=== PATIENT | female | born 1945 | race Caucasian/White ===

== ENCOUNTER 2016-10-02 20:49 | Emergency (ER) | payer MEDICARE, OTHER ==
[~2016-10-02] VITALS: Ht 167.6 cm; Wt 90.7 kg
--- NOTE | 2016-10-02 20:56 | NUR ---
PT AMBULATORY TO ER BED 09. C/O L FLANK PAIN SINCE LAST NIGHT. ALSO C/O DYSURIA. PER FAMILY PT HAS HX OF KIDNEY STONE 6 YEARS AGO AND IS HAVING THE SAME SYMPTOMS. GOWNED AND PLACED ON MONITOR. HYPERTENSIVE OTHERWISE STABLE VITALS. AWAITING MD FRENCH.
--- NOTE | 2016-10-02 21:25 | NUR ---
ANGLE MALIN AT BEDSIDE FOR EVAL.
[2016-10-02] MEDS ORDERED: IV NS 0.9% 1,000 ML BAG IV ONE (21:30)
--- NOTE | 2016-10-02 21:30 | NUR ---
IV LINE STARTED BLOO DRAWN AND SENT TO LAB.
[2016-10-02 21:32] LABS: APPEARANCE,URINE Clear (CLEAR); BILIRUBIN,URINE Negative (NEGATIVE); BLOOD, URINE Small Ery/uL (NEGATIVE); COLOR,URINE Yellow (YELLOW); KETONES,URINE Negative (NEGATIVE); LEUKOCYTE ESTERASE ,URINE Negative (NEGATIVE); NITRITE, URINE Negative (NEGATIVE); PH,URINE 5.5 (5.0-8.0); PROTEIN,URINE Negative (NEGATIVE); UGLUCOSE Negative (NEGATIVE); UROBILINOGEN,URINE 0.2 EU/dL (0.2)
[2016-10-02 21:37] LABS: BASOPHILS # (AUTO) 0.1 /CMM (0.0-0.2); BASOPHILS % (AUTO) 0.6 % (0.0-2.0); EOSINOPHILS # (AUTO) 0.1 /CMM (0.0-0.7); EOSINOPHILS % (AUTO) 1.5 % (0.0-6.0); HEMATOCRIT 46 % (33-45); HEMOGLOBIN 15.3 g/dL (11.5-14.8); LYMPHOCYTES # (AUTO) 1.9 /CMM (0.8-4.8); LYMPHOCYTES % (AUTO) 19.8 % (20.0-44.0); MEAN CORPUSCULAR HEMOGLOBIN 29 PG (26.0-33.0); MEAN CORPUSCULAR HGB CONC 33 g/dl (31.0-36.0); MEAN CORPUSCULAR VOLUME 87 fL (82-100); MONOCYTES # (AUTO) 0.6 /CMM (0.1-1.30); MONOCYTES % (AUTO) 6.6 % (2.0-12.0); NEUTROPHILS # (AUTO) 6.9 /CMM (1.8-8.9); NEUTROPHILS % (AUTO) 71.5 % (43.0-81.0); PLATELET COUNT (AUTO) 204 /CMM (150-450); RDW COEFFICIENT OF VARIATION 13.6 (11.5-15.0); RED BLOOD CELL COUNT(AUTO) 5.34 MIL/uL (4.0-5.2); WHITE BLOOD COUNT (AUTO) 9.6 K/uL (4.3-11.0)
[2016-10-02] MEDS ORDERED: KETOROLAC TROMETHAMINE 15 MG/ML VIAL ONE (21:39)
[2016-10-02] MEDS ORDERED: MORPHINE SULFATE INJ 2 MG/ML DISP.SYRIN ONE (21:39)
[2016-10-02 21:44] LABS: CALCIUM, SERUM 9.3 mg/dL (8.5-10.1); CREATININE 0.8 mg/dL (0.6-1.3); POTASSIUM 3.7 mmol/L (3.5-5.1)
[2016-10-02 21:45] LABS: BACTERIA,URINE Few /HPF (None Seen); MUCUS,URINE Many /LPF (None Seen); SQUAMOUS EPITHELIAL CELL,UR Few /HPF (None Seen); URINE AMORPHOUS URATE Few /HPF (None Seen)
[2016-10-02 21:50] LABS: BILIRUBIN,DIRECT 0.1 mg/dL (0.0-0.2); BILIRUBIN,TOTAL 0.5 mg/dL (0.2-1.0); TOTAL PROTEIN, SERUM 7.5 g/dL (6.4-8.2)
[2016-10-02] MEDS ORDERED: ONDANSETRON HCL/PF 4 MG/2 ML VIAL ONE (21:52)
[2016-10-02] MEDS ORDERED: KETOROLAC TROMETHAMINE INJ 30 MG/ML VIAL IV ONE (22:00)
[2016-10-02] MEDS ORDERED: MORPHINE SULFATE INJ 2 MG/ML DISP.SYRIN IV ONE (22:00)
[2016-10-02] MEDS ORDERED: ONDANSETRON HCL/PF 4 MG/2 ML VIAL IV ONE (22:00)
[2016-10-02 22:35] VITALS: BP 168/94
--- NOTE | 2016-10-02 22:35 | NUR ---
Patient discharged to home in stable condition. Written and verbal after care instructions given. Patient verbalizes understanding of instruction.IV removed. Catheter intact and site benign. Pressure and 4x4 applied to site. No bleeding noted.
== END 2016-10-02 22:36 | disposition home or self-care (01) ==
LOC: ER 20:50
DX: M54.42 Lumbago with sciatica, left side (principal); E86.0 Dehydration; I49.9 Cardiac arrhythmia, unspecified; M19.90 Unspecified osteoarthritis, unspecified site; I10 Essential (primary) hypertension; Z87.442 Personal history of urinary calculi
CPT/HCPCS: 36415; 80048; 80076; 81001; 85025; 96374; 96375; 99284; A4606; J1885; J2270; J2405; J7030; 81000-TC; Z7610

== ENCOUNTER 2019-02-05 15:54 | Inpatient (IN) | payer MEDICARE, OTHER ==
[~2019-02-05] VITALS: Ht 170.2 cm; Wt 87.1 kg
--- NOTE | 2019-02-05 15:54 | NUR ---
WORSENINIG SHORTNESS OF BREATH,UNABLE TO LAY FLAT IN BED, CHAD.LEG SWELLING, PT AWAKE, ALERT, NAD NOTED, PT ON MONITOR, MD AT BEDSIDE FOR EVAL
[2019-02-05] MEDS ORDERED: FUROSEMIDE 40 MG/4 ML VIAL IV ONE (16:30)
[2019-02-05] MEDS ORDERED: FUROSEMIDE 40 MG/4 ML VIAL ONE (16:34)
[2019-02-05 16:47] LABS: BASOPHILS % (AUTO) 0.4 % (0.0-2.0); EOSINOPHILS % (AUTO) 0.6 % (0.0-6.0); HEMATOCRIT 46 % (33-45); LYMPHOCYTES # (AUTO) 1.8 /CMM (0.8-4.8); LYMPHOCYTES % (AUTO) 15.4 % (20.0-44.0); MEAN CORPUSCULAR HGB CONC 33 g/dl (31.0-36.0); MEAN CORPUSCULAR VOLUME 90 fL (82-100); MONOCYTES # (AUTO) 0.9 /CMM (0.1-1.30); MONOCYTES % (AUTO) 7.5 % (2.0-12.0); NEUTROPHILS # (AUTO) 8.6 /CMM (1.8-8.9); NEUTROPHILS % (AUTO) 76.1 % (43.0-81.0); PLATELET COUNT (AUTO) 238 /CMM (150-450); RED BLOOD CELL COUNT(AUTO) 5.09 MIL/uL (4.0-5.2); WHITE BLOOD COUNT (AUTO) 11.4 K/uL (4.3-11.0)
[2019-02-05] MEDS ORDERED: METOPROLOL TARTRATE INJ 5 MG/5 ML AMPUL IV ONE ×3 (17:00→20:00)
[2019-02-05] MEDS ORDERED: METOPROLOL TARTRATE INJ 5 MG/5 ML AMPUL ONE ×3 (17:05→19:46)
[2019-02-05 17:12] LABS: CALCIUM, SERUM 8.8 mg/dL (8.5-10.1); CREATININE 0.9 mg/dL (0.6-1.3)
[2019-02-05] MEDS ORDERED: MELO-107 PO (17:46)
[2019-02-05] MEDS ORDERED: CARV25TA2 PO (17:46)
[2019-02-05] MEDS ORDERED: BUDE10.22 PO (17:46)
[2019-02-05] MEDS ORDERED: CLON0.5T4 PO (17:46)
[2019-02-05] MEDS ORDERED: CLON0.2T PO (17:46)
[2019-02-05] MEDS ORDERED: MECL12.582 PO (17:46)
[2019-02-05] MEDS ORDERED: LOSA50TA39 PO (17:46)
--- NOTE | 2019-02-05 19:03 | NUR ---
CALLED [facility] ITS DR. SHUKLA IS ON.
[2019-02-05] MEDS ORDERED: METOPROLOL TARTRATE INJ 5 MG/5 ML AMPUL IVP ONE (20:00)
--- NOTE | 2019-02-05 20:40 | NUR ---
REFRACTORY PRODUCTS SUPERVISOR NOTES: PATIENT ARRIVED TO UNIT VIA GURNEY. PATIENT IS A 73-YEAR-OLD FEMALE WITH DX: ACUTE CHF AND AFIB WITH RVR. NO RESPIRATORY DISTRESS. ON O2 AT 2LPM VIA NC, TOLERATING WELL. NO CHEST PAIN. SON AT BEDSIDE. PLACED ON PHARMACY SALES REPRESENTATIVE, SHOWING UNCONTROLLED AFIB, HR 140s. V/S TAKEN. BODY ASSESSMENT DONE. SAFETY PRECAUTIONS IMPLEMENTED. BED LOCKED, ALARM ON, AND IN LOWEST POSITION. SIDE RAILS X 2 UP. CALL LIGHT PLACED WITHIN REACH. WILL CONT. TO MONITOR. Addendum: 02/06/19 at 0049 by ERIN BROCK RN PHOTO OF SKIN ISSUE TAKEN AND PLACED IN CHART.
--- NOTE | 2019-02-05 20:48 | NUR ---
REPORT GIVEN TO BRUCE STEWART FOR NGOC PT TRANSPORTED TO [facility]
[2019-02-05] MEDS ORDERED: ALBUTEROL FS 2.5 MG/0.5 ML VIAL.NEB NEB PRN (21:00)
[2019-02-05] MEDS ORDERED: IPRATROPIUM NEB FS 0.5 MG/2.5 ML AMPUL.NEB NEB PRN (21:00)
[2019-02-05 21:21] VITALS: BP 115/82
[2019-02-05] MEDS ORDERED: DILTIAZEM HCL 25 MG IV ONE ×2 (21:28→21:30)
[2019-02-05] MEDS: DILTIAZEM HCL IV 125 MG in IV NS 0.9% 100 ML IV PRN (21:53)
--- NOTE | 2019-02-05 21:53 | NUR ---
RN NOTE: UNABLE TO SCAN CARDIZEM. MANUALLY SCANNED MEDICATION.
--- NOTE | 2019-02-05 23:00 | NUR ---
RN NOTE: PATIENT WISHES TO BE FULL CODE. DR. SHUKLA MADE AWARE. ECHO DONE. EF 25-30%. DR. SHUKLA MADE AWARE WITH NO NEW ORDERS. PATIENT IN NO ACUTE DISTRESS AT THIS TIME. NO CHEST PAIN. WILL CONT. TO MONITOR.
[2019-02-06] VITALS: BP 128/71
[2019-02-06] MEDS: FUROSEMIDE 40 MG/4 ML VIAL IV SCH ×4 (00:22→17:01)
[2019-02-06 04:00] VITALS: BP 121/80
--- NOTE | 2019-02-06 04:57 | NUR ---
RN NOTE: PATIENT'S HR 100-110. PATIENT IN NO ACUTE DISTRESS. NO CHEST PAIN AT THIS TIME. WILL CONT. TO MONITOR.
--- NOTE | 2019-02-06 05:25 | NUR ---
RN NOTE: PATIENT C/O BLE /10 PAIN AND SEVERE DISCOMFORT FROM MONTEJO CATHETER. SPOKE WITH DR. SHUKLA WITH NEW ORDER FOR NORCO 5/325 MG 1 TAB PO Q6H PRN. MONTEJO CATHETER IS INTACT, PATENT, AND DRAINING CLEAR YELLOW URINE, OUTPUT 2,800 MLS. HOWEVER, PATIENT STILL WANTS THE MONTEJO CATHETER REMOVED. PATIENT STATES SHE WILL PULL IT OUT HERSELF IF IT'S NOT REMOVED. DR. SHUKLA MADE AWARE. REMOVED MONTEJO PER PATIENT REQUEST, TOLERATED PROCEDURE WELL, WILL ENDORSE TO AM SHIFT NURSE TO TRY AND REINSERT MONTEJO. Addendum: 02/06/19 at 0715 by ERIN BROCK RN RISKS AND BENEFITS EXPLAINED. PATIENT STILL REFUSING MONTEJO CATHETER.
[2019-02-06] MEDS ORDERED: HYDROCODONE/APAP 5/325MG 1 EACH TABLET PO PRN (06:00)
[2019-02-06 07:07] LABS: BASOPHILS % (AUTO) 0.3 % (0.0-2.0); EOSINOPHILS % (AUTO) 0.8 % (0.0-6.0); HEMATOCRIT 45 % (33-45); HEMOGLOBIN 14.9 g/dL (11.5-14.8); LYMPHOCYTES # (AUTO) 1.2 /CMM (0.8-4.8); LYMPHOCYTES % (AUTO) 12.5 % (20.0-44.0); MEAN CORPUSCULAR HGB CONC 33 g/dl (31.0-36.0); MEAN CORPUSCULAR VOLUME 89 fL (82-100); MONOCYTES # (AUTO) 0.8 /CMM (0.1-1.30); MONOCYTES % (AUTO) 8.7 % (2.0-12.0); NEUTROPHILS # (AUTO) 7.6 /CMM (1.8-8.9); NEUTROPHILS % (AUTO) 77.7 % (43.0-81.0); PLATELET COUNT (AUTO) 214 /CMM (150-450); RED BLOOD CELL COUNT(AUTO) 5.01 MIL/uL (4.0-5.2); WHITE BLOOD COUNT (AUTO) 9.8 K/uL (4.3-11.0)
--- NOTE | 2019-02-06 07:10 | NUR ---
RN CLOSING NOTES: PATIENT AWAKE AND VERBALLY RESPONSIVE. AAOX4. SON AT BEDSIDE. NO RESPIRATORY DISTRESS. NO CHEST PAIN. STILL UNCONTROLLED AFIB. REMAINS ON CARDIZEM DRIP. HR 110-120s. RISKS AND BENEFITS EXPLAINED OF MONTEJO CATHETER, PATIENT STILL REFUSED. SAFETY PRECAUTIONS IMPLEMENTED. BED LOCKED, ALARM ON, AND IN LOWEST POSITION. ENDORSED TO AM SHIFT NURSE FOR CONTINUITY OF CARE.
[2019-02-06 07:21] LABS: ALBUMIN 2.9 g/dL (3.4-5.0); CALCIUM, SERUM 8.6 mg/dL (8.5-10.1); CREATININE 0.9 mg/dL (0.6-1.3); POTASSIUM 3.2 mmol/L (3.5-5.1); TOTAL PROTEIN, SERUM 5.7 g/dL (6.4-8.2)
[2019-02-06 08:00] VITALS: BP 125/69
--- NOTE | 2019-02-06 08:17 | NUR ---
received pt from crm dynamics developer, a/o x4, A fib controlled, on Cardizem gtt at 5mg/hr, on 2L 02 sat well, tolerates diet, diaper on, refused F/C, v/s stable, no pain, son at the bedside, pt turns and repositions by herself.
[2019-02-06] MEDS: clonazePAM 0.5 MG TABLET PO SCH (08:50)
[2019-02-06] MEDS ORDERED: ENOXAPARIN SODIUM 30 MG/0.3 ML DISP.SYRIN SQ SCH (09:00)
[2019-02-06] MEDS: POTASSIUM CHLORIDE 20 MEQ TAB.PRT.SR PO SCH ×3 (09:42→12:02)
[2019-02-06] MEDS: CARVEDILOL 3.125 MG TABLET PO SCH ×2 (09:42→22:12)
[2019-02-06 10:20] LABS: THYROID STIMULATING HORMONE 2.047 uIU/mL (0.358-3.74)
[2019-02-06 10:28] LABS: MAGNESIUM 1.9 mg/dL (1.8-2.4); PHOSPHORUS 3.9 mg/dL (2.5-4.9)
[2019-02-06] MEDS: DIGOXIN INJ 0.5 MG/2 ML AMPUL IV SCH ×2 (11:06→17:01)
[2019-02-06 12:00] VITALS: BP 95/48
[2019-02-06 16:00] VITALS: BP 130/80
--- NOTE | 2019-02-06 16:27 | NUR ---
pt is resting in the bed, a/o x4, A fib controlled/uncontrolled, on 2L 02, receiving Cardizem drip at 5mg/hr, tolerated diet, v/s stable, no pain, pt cleaned and changed.
[2019-02-06] MEDS: APIXABAN 5 MG TABLET PO SCH (17:02)
--- NOTE | 2019-02-06 17:30 | NUR ---
pt's IV is dislodged, one attempt was made to insert - unsuccessful, patient did not let me try one more time- very sensitive to pain, midline ordered.
[2019-02-06 20:00] VITALS: BP 114/76
--- NOTE | 2019-02-06 20:00 | NUR ---
RN NOTES RECEIVED PATIENT AWAKE AND VERBALLY RESPONSIVE IN BED. A/A/OX4. SON AT BEDSIDE. NO RESPIRATORY DISTRESS. NO CHEST PAIN. ON O2 VIA NC. STILL AFIB ON GENERAL MILLING SUPERINTENDENT. REMAINS ON CARDIZEM DRIP.RISKS AND BENEFITS EXPLAINED OF MONTEJO CATHETER, PATIENT STILL REFUSED USING BSC. SAFETY PRECAUTIONS IMPLEMENTED. BED LOCKED, ALARM ON, AND IN LOWEST POSITION. WILL CONTINUE TO MONITOR.
[2019-02-07] VITALS: BP 119/77
[2019-02-07] MEDS: DIGOXIN INJ 0.5 MG/2 ML AMPUL IV SCH (00:52)
[2019-02-07] MEDS: FUROSEMIDE 40 MG/4 ML VIAL IV SCH ×4 (00:52→17:29)
[2019-02-07] MEDS: DILTIAZEM HCL IV 125 MG in IV NS 0.9% 100 ML IV PRN (02:43)
[2019-02-07 04:00] VITALS: BP 118/61
[2019-02-07 06:53] LABS: BASOPHILS % (AUTO) 0.6 % (0.0-2.0); EOSINOPHILS % (AUTO) 1.7 % (0.0-6.0); HEMATOCRIT 45 % (33-45); LYMPHOCYTES # (AUTO) 1.3 /CMM (0.8-4.8); LYMPHOCYTES % (AUTO) 15.3 % (20.0-44.0); MEAN CORPUSCULAR HGB CONC 33 g/dl (31.0-36.0); MEAN CORPUSCULAR VOLUME 89 fL (82-100); MONOCYTES # (AUTO) 0.8 /CMM (0.1-1.30); MONOCYTES % (AUTO) 9.3 % (2.0-12.0); NEUTROPHILS # (AUTO) 6.2 /CMM (1.8-8.9); NEUTROPHILS % (AUTO) 73.1 % (43.0-81.0); PLATELET COUNT (AUTO) 194 /CMM (150-450); RED BLOOD CELL COUNT(AUTO) 5.02 MIL/uL (4.0-5.2); WHITE BLOOD COUNT (AUTO) 8.5 K/uL (4.3-11.0)
--- NOTE | 2019-02-07 07:00 | NUR ---
RN NOTES PATIENT IS RESTING IN BED. A/A/OX4. NO RESPIRATORY DISTRESS. NO CHEST PAIN. ON O2 VIA NC. STILL AFIB ON HUMAN RESOURCES PARTNER. REMAINS ON CARDIZEM DRIP.SAFETY PRECAUTIONS ARE IN PLACE,. BED LOCKED, ALARMED AND IN LOWEST POSITION. WILL INDORSE TO AM RN FOR HUNTING AND FISHING GUIDE..
--- NOTE | 2019-02-07 07:30 | NUR ---
SAVANNA RN INITIAL NOTE RECEIVED PATIENT AWAKE AND ALERT, DENIES PAIN OR DISCOMFORT AT THIS TIME. DENIES CHEST PAIN. ON TELE MONITOR AFIB UNCONTROLLED 103. SKIN WARM AND DRY TO TOUCH. NO RESPIRATORY DISTRESS NOTED ON 2LPMO2 VIA NC. WITH PEG MIDLINE PATENT AND INTACT, ON CARDIZEM DRIP AT 5ML/HR. HOB ELEVATED. SIDE RAILS UP AND LOCKED. BED KEPT AT LOWEST POSITION. CALL LIGHT KEPT WITHIN EASY REACH. WILL CONTINUE TO MONITOR.
[2019-02-07 08:00] VITALS: BP 126/85
[2019-02-07 08:08] LABS: ALANINE AMINOTRANSFERASE 128 U/L (12-78); ALBUMIN 2.8 g/dL (3.4-5.0); ALKALINE PHOSPHATASE 117 U/L (46-116); ASPARTATE AMINOTRANSFERASE 33 U/L (15-37); CALCIUM, SERUM 8.6 mg/dL (8.5-10.1); CARBON DIOXIDE 30 mmol/L (21-32); CHLORIDE 104 mmol/L (98-107); GLUCOSE 97 mg/dL (74-106); MAGNESIUM 1.9 mg/dL (1.8-2.4); PHOSPHORUS 4.2 mg/dL (2.5-4.9); POTASSIUM 3.4 mmol/L (3.5-5.1); SODIUM SERUM 144 mmol/L (136-145); TOTAL PROTEIN, SERUM 5.7 g/dL (6.4-8.2); UREA NITROGEN, BLOOD 20 mg/dL (7-18)
[2019-02-07] MEDS: APIXABAN 5 MG TABLET PO SCH ×2 (08:30→17:30)
[2019-02-07] MEDS: clonazePAM 0.5 MG TABLET PO SCH (08:34)
[2019-02-07] MEDS: CARVEDILOL 3.125 MG TABLET PO SCH (08:35)
[2019-02-07] MEDS: POTASSIUM CHLORIDE 20 MEQ TAB.PRT.SR PO SCH ×3 (10:23→12:15)
--- NOTE | 2019-02-07 10:47 | NUR ---
horticultural farmworker note continuity of care endorsed to PAT Calvert
[2019-02-07 16:00] VITALS: BP 117/76
--- NOTE | 2019-02-07 19:40 | NUR ---
MS RN OPENING NOTES, RECEIVED PATIENT AWAKE AND ALERT SITTING IN THE BED, DENIES PAIN OR DISCOMFORT AT THIS TIME. DENIES CHEST PAIN. SKIN WARM AND DRY TO TOUCH. NO RESPIRATORY DISTRESS NOTED ON 2L O2 VIA NC. WITH PEG MIDLINE PATENT AND INTACT, NO S/S OF INFILTRATION NOTED. PATIENT IS AMBULATORY. HOB ELEVATED. SIDE RAILS UP X2. BED LOCKED/LOW POSITION. CALL LIGHT WITHIN REACH. WILL CONTINUE TO MONITOR.
[2019-02-07] MEDS: CARVEDILOL 6.25 MG TABLET PO SCH (21:16)
[2019-02-08] MEDS: FUROSEMIDE 40 MG/4 ML VIAL IV SCH ×2 (00:48→06:01)
[2019-02-08 04:00] VITALS: BP 97/64
--- NOTE | 2019-02-08 06:41 | NUR ---
MS RN CLOSING NOTES, PATIENT AWAKE AND ALERT IN THE BED, DENIES PAIN OR DISCOMFORT AT THIS TIME. DENIES CHEST PAIN. SKIN WARM AND DRY TO TOUCH. NO RESPIRATORY DISTRESS NOTED ON 2L O2 VIA NC, TOLERATING WELL. PATIENT HAS PEG MIDLINE, PATENT AND INTACT, NO S/S OF INFILTRATION NOTED. PATIENT IS AMBULATORY TO BATHROOM. HOB ELEVATED. SIDE RAILS UP X2. BED LOCKED/LOW POSITION. CALL LIGHT WITHIN REACH. WILL ENDORSE THE CONTINUES CARE TO AM RN.
--- NOTE | 2019-02-08 07:13 | NUR ---
MS RN OPENING NOTE RECEIVED REPORT FROM [facility] SHIFT NURSE. PT AWAKE IN BED, ALERT AND ORIENTED X 4, ON 02 VIA NC 2L/MIN, SATURATING WELL, RESPIRATIONS EVEN AND UNLABORED, NO SIGNS OF RESPIRATORY DISTRESS NOTED. MIDLINE IN RIGHT UPPER ARM INTACT, PATENT. BED IN LOW POSITION, LOCKED, CALL LIGHT WITHIN REACH.
[2019-02-08 07:23] LABS: BASOPHILS % (AUTO) 0.4 % (0.0-2.0); EOSINOPHILS % (AUTO) 1.9 % (0.0-6.0); HEMATOCRIT 49 % (33-45); HEMOGLOBIN 16.2 g/dL (11.5-14.8); LYMPHOCYTES # (AUTO) 1.8 /CMM (0.8-4.8); LYMPHOCYTES % (AUTO) 19.2 % (20.0-44.0); MEAN CORPUSCULAR HGB CONC 33 g/dl (31.0-36.0); MEAN CORPUSCULAR VOLUME 90 fL (82-100); MONOCYTES # (AUTO) 0.9 /CMM (0.1-1.30); MONOCYTES % (AUTO) 9.9 % (2.0-12.0); NEUTROPHILS # (AUTO) 6.4 /CMM (1.8-8.9); NEUTROPHILS % (AUTO) 68.6 % (43.0-81.0); PLATELET COUNT (AUTO) 220 /CMM (150-450); RED BLOOD CELL COUNT(AUTO) 5.44 MIL/uL (4.0-5.2); WHITE BLOOD COUNT (AUTO) 9.3 K/uL (4.3-11.0)
[2019-02-08 07:31] LABS: ALANINE AMINOTRANSFERASE 103 U/L (12-78); ALBUMIN 2.7 g/dL (3.4-5.0); ALKALINE PHOSPHATASE 108 U/L (46-116); ASPARTATE AMINOTRANSFERASE 32 U/L (15-37); BILIRUBIN,TOTAL 0.8 mg/dL (0.2-1.0); CALCIUM, SERUM 8.6 mg/dL (8.5-10.1); CARBON DIOXIDE 34 mmol/L (21-32); CHLORIDE 101 mmol/L (98-107); CREATININE 1.1 mg/dL (0.6-1.3); GLUCOSE 98 mg/dL (74-106); PHOSPHORUS 3.7 mg/dL (2.5-4.9); POTASSIUM 3.6 mmol/L (3.5-5.1); SODIUM SERUM 142 mmol/L (136-145); TOTAL PROTEIN, SERUM 5.8 g/dL (6.4-8.2); UREA NITROGEN, BLOOD 20 mg/dL (7-18)
[2019-02-08 08:00] VITALS: BP 134/87
[2019-02-08] MEDS: clonazePAM 0.5 MG TABLET PO SCH (08:23)
[2019-02-08] MEDS: CARVEDILOL 6.25 MG TABLET PO SCH ×2 (08:24→21:00)
[2019-02-08] MEDS: APIXABAN 5 MG TABLET PO SCH ×2 (08:25→17:17)
[2019-02-08 08:42] LABS: ABG BASE EXCESS 8.1 mmol/L; ABG OXYGEN SATURATION 94.1 % (92.0-98.5); ABG PCO2 38.7 mmHg (35.0-45.0); ABG PH 7.527 (7.350-7.450); AaDO2 35.4 mmHg; COHb 0.8 % (0.5-1.5); MetHb 0.4 % (0.0-1.5); SITE, ABG Right Radial; VENT MODE, BG ROOM AIR
[2019-02-08] MEDS ORDERED: IV NS 0.9% 250 ML IV ONE (10:52)
[2019-02-08] MEDS ORDERED: IOHEXOL-350 100 ML VIAL IV ONE (10:52)
[2019-02-08] MEDS ORDERED: IV NS 0.9% 500 ML IV PRN (11:00)
[2019-02-08] MEDS ORDERED: NITROGLYCERIN 4.9 GM SPRAY SL PRN (11:00)
[2019-02-08] MEDS ORDERED: NITROGLYCERIN 0.4 MG/TAB BOTTLE ONE (11:05)
[2019-02-08] MEDS ORDERED: METOPROLOL TARTRATE INJ 5 MG/5 ML AMPUL ONE ×2 (11:06→11:47)
[2019-02-08] MEDS: METOPROLOL TARTRATE INJ 5 MG/5 ML AMPUL IVP PRN ×6 (11:16→11:53)
--- NOTE | 2019-02-08 11:31 | NUR ---
cta heart ongoing HR baseline uncontrolled afib at [address] kerry aware; with order to continue with test
--- NOTE | 2019-02-08 11:58 | NUR ---
total metoprolol given at 35 mg IVP. heart rate persistent uncontrolled afib at 120's 130's . Dr Vanegas aware; Dr Leung awware, Dr Tinajero aware Iinformed by [employer] Jose Harry) with order to suspend procedure due to uncontrolled afib, report given to PAT Perdomo; transported back to room 107
--- NOTE | 2019-02-08 12:01 | NUR ---
RECEIVED CALL FROM RADIOLOGY SPOKE WITH AUDELIA. TOTAL OF 35MG OF METOPROLOL WAS GIVEN, PT REMAINED WITH CONTROLLED AFIB BEFORE AND AFTER THE PROCEDURE. DR. VEDA MONTOYA.
--- NOTE | 2019-02-08 12:02 | NUR ---
PT RETURNED TO UNIT IN STABLE CONDITION
[2019-02-08 16:00] VITALS: BP 117/83
--- NOTE | 2019-02-08 18:43 | NUR ---
MS RN CLOSING NOTE PT AWAKE IN BED, ALERT AND ORIENTED X 4, ANXIOUS AND RESTLESS DUE TO NOT BEING DISCHARGED TODAY. ON 02 VIA NC 2L/MIN, SATURATING WELL, RESPIRATIONS EVEN AND UNLABORED, NO SIGNS OF RESPIRATORY DISTRESS NOTED. MIDLINE IN RIGHT UPPER ARM INTACT, PATENT. BED IN LOW POSITION, LOCKED, CALL LIGHT WITHIN REACH. PROVIDED SAFETY AND COMFORT TO PT THROUGHOUT SHIFT, ALL DUE MEDS GIVEN, WILL ENDORSE TO NOC SHIFT NURSE.
--- NOTE | 2019-02-08 19:35 | NUR ---
MS RN OPENING NOTES, RECEIVED PATIENT AWAKE AND ALERT SITTING IN THE BED, A/OX4. DENIES PAIN OR DISCOMFORT AT THIS TIME. DENIES CHEST PAIN. SKIN WARM AND DRY TO TOUCH. NO RESPIRATORY DISTRESS NOTED ON 2L O2 VIA NC. PATIENT WANTED TO BE DISCHARGED BUT NOT ABLE BECAUSE OF UNCONTROLLED A.FIB DURING DAY SHIFT. PATIENT HAS PEG MIDLINE PATENT AND INTACT, NO S/S OF INFILTRATION NOTED. PATIENT IS AMBULATORY. HOB ELEVATED. SIDE RAILS UP X2. BED LOCKED/LOW POSITION. CALL LIGHT WITHIN REACH. WILL CONTINUE TO MONITOR.
[2019-02-08 20:00] VITALS: BP 101/84
--- NOTE | 2019-02-08 21:39 | NUR ---
MS RN NOTE, BP MED COREG, WAS HOLD BECAUSE OF LOW BP 101/84 HR 77. WILL CONTINUE TO MONITOR.
[2019-02-09 04:00] VITALS: BP 115/60
[2019-02-09 06:15] LABS: BASOPHILS % (AUTO) 0.5 % (0.0-2.0); EOSINOPHILS % (AUTO) 1.7 % (0.0-6.0); HEMATOCRIT 47 % (33-45); HEMOGLOBIN 15.3 g/dL (11.5-14.8); LYMPHOCYTES # (AUTO) 1.4 /CMM (0.8-4.8); LYMPHOCYTES % (AUTO) 18.6 % (20.0-44.0); MEAN CORPUSCULAR HGB CONC 33 g/dl (31.0-36.0); MEAN CORPUSCULAR VOLUME 90 fL (82-100); MONOCYTES # (AUTO) 0.8 /CMM (0.1-1.30); MONOCYTES % (AUTO) 11.5 % (2.0-12.0); NEUTROPHILS % (AUTO) 67.7 % (43.0-81.0); PLATELET COUNT (AUTO) 160 /CMM (150-450); RED BLOOD CELL COUNT(AUTO) 5.22 MIL/uL (4.0-5.2); WHITE BLOOD COUNT (AUTO) 7.3 K/uL (4.3-11.0)
--- NOTE | 2019-02-09 06:29 | NUR ---
MS RN CLOSING NOTES, PATIENT IN BED SLEEPING, EASILY AROUSABLE. AWAKE AND ALERT X4, NO SOB OR ANY ACUTE DISTRESS NOTED AT THIS TIME. SKIN WARM AND DRY TO TOUCH. NO RESPIRATORY DISTRESS NOTED ON 2L O2 VIA NC. PATIENT WANTED TO BE DISCHARGED BUT NOT ABLE BECAUSE OF UNCONTROLLED A.FIB DURING DAY SHIFT. PATIENT HAS PEG MIDLINE PATENT AND INTACT, NO S/S OF INFILTRATION NOTED. PATIENT IS AMBULATORY. HOB ELEVATED. SIDE RAILS UP X2. BED LOCKED/LOW POSITION. CALL LIGHT WITHIN REACH. WILL ENDORSE THE PATIENT TO AM RN FOR NGOC.
[2019-02-09 06:42] LABS: CALCIUM, SERUM 8.5 mg/dL (8.5-10.1); CREATININE 0.9 mg/dL (0.6-1.3); MAGNESIUM 2.1 mg/dL (1.8-2.4); PHOSPHORUS 2.6 mg/dL (2.5-4.9)
[2019-02-09 08:00] VITALS: BP 115/95
--- NOTE | 2019-02-09 08:00 | NUR ---
ms rn received patient awake,alert,oriented x4,not in any form of distress, respirations even and unlabored,no sob noted, lungs are diminished,abdomen soft,positive bowel sounds,denies pain at this itme,will monitor patient's condition.
--- NOTE | 2019-02-09 09:30 | NUR ---
ms santana breakfast served,due meds given,tolerated well.
[2019-02-09] MEDS: clonazePAM 0.5 MG TABLET PO SCH (09:47)
[2019-02-09] MEDS: APIXABAN 5 MG TABLET PO SCH (09:50)
[2019-02-09] MEDS ORDERED: POTASSIUM CHLORIDE 20 MEQ POWDER PACKET PO SCH (10:30)
--- NOTE | 2019-02-09 11:00 | NUR ---
ms rn was seen by dr. dacosta w/ orders made and carried out. patient wants to go home but doctor olesya is hesitant to order due to patient's condition.
--- NOTE | 2019-02-09 11:30 | NUR ---
ms rn patient went walking around station, tolerating wel w/ no sob noted, 96% saturation at room air.
[2019-02-09] MEDS ORDERED: DIGOXIN 0.25 MG TABLET PO SCH ×2 (12:00→13:00)
--- NOTE | 2019-02-09 14:00 | NUR ---
ms rn son came to pick her up, patient realy wants to go home, will be leaving ama, andonian is aware, son really wants to go home.
--- NOTE | 2019-02-09 14:15 | NUR ---
ms rn both really wants to go home now, refused to take picture on both foot,all needs attended.
--- NOTE | 2019-02-09 14:21 | NUR ---
SON AT BEDSIDE WANTS TO TAKE PATIENT HOME,EXPLAINED THERE IS NO ORDER YET FOR DISCHARGE,PATIENT INSISTED TO GO HOME,AWAKE ALERT,SAT ROOMAIR 94%,PATIENT AWARE OF RISKS OF LEAVING AMA,INSTRUCTED TO GO BACK TO ER ONCE SYMPTOMS RECUR AGAIN,DISCHARGE AMA ACCOMPANIED BY SON.
[2019-02-09] MEDS ORDERED: CARVEDILOL 12.5 MG TABLET PO SCH (21:00)
== END 2019-02-09 14:34 | disposition home or self-care (01) | DRG 292 ==
LOC: ER 15:58 → TELE 19:31 → TELE-TD 20:21 → MEDSG1 02-07 10:09
PROVIDERS: ATTEND Family Medicine
PROC: 05HB33Z Insertion of Infusion Device into Right Basilic Vein, Percutaneous Approach (ICD-10-PCS; principal; 2019-02-06)
DX: I11.0 Hypertensive heart disease with heart failure (principal); D68.59 Other primary thrombophilia; E44.0 Moderate protein-calorie malnutrition; E87.3 Alkalosis; J90 Pleural effusion, not elsewhere classified; I48.91 Unspecified atrial fibrillation; D72.829 Elevated white blood cell count, unspecified; J45.909 Unspecified asthma, uncomplicated; E87.6 Hypokalemia; Z87.442 Personal history of urinary calculi; N20.0 Calculus of kidney; M17.0 Bilateral primary osteoarthritis of knee; Z79.899 Other long term (current) drug therapy; Z79.51 Long term (current) use of inhaled steroids; I70.0 Atherosclerosis of aorta; I08.0 Rheumatic disorders of both mitral and aortic valves; K76.0 Fatty (change of) liver, not elsewhere classified; E66.9 Obesity, unspecified; K76.1 Chronic passive congestion of liver; R09.02 Hypoxemia; T38.0X5A Adverse effect of glucocorticoids and synthetic analogues, initial encounter; Y92.9 Unspecified place or not applicable; I25.5 Ischemic cardiomyopathy; I50.23 Acute on chronic systolic (congestive) heart failure
CPT/HCPCS: 36415; 36600; 71045-TC; 76700-TC; 80048-TC; 80053-TC; 80061-TC; 82803-TC; 83735-TC; 83880; 84100-TC; 84439-TC; 84443-TC; 84484-TC; 85025-TC; 87081-TC; 93307-TC; G0378; J1160; J1650; J1940; J3490; J7030; J7040; J7050; J7060; Q9967

== ENCOUNTER 2019-02-19 10:22 | Outpatient (CLI) | payer MEDICARE, OTHER ==
[~2019-02-19 10:22] MED LIST: BUDE10.22 PO; CARV25TA2 PO; CLON0.2T PO; CLON0.5T4 PO; LOSA50TA39 PO; MECL12.582 PO; MELO-107 PO
[2019-02-19 11:49] LABS: BASOPHILS % (AUTO) 0.3 % (0.0-2.0); EOSINOPHILS % (AUTO) 0.1 % (0.0-6.0); HEMATOCRIT 43 % (33-45); HEMOGLOBIN 14.2 g/dL (11.5-14.8); LYMPHOCYTES # (AUTO) 0.9 /CMM (0.8-4.8); LYMPHOCYTES % (AUTO) 6.5 % (20.0-44.0); MEAN CORPUSCULAR HGB CONC 33 g/dl (31.0-36.0); MEAN CORPUSCULAR VOLUME 88 fL (82-100); MONOCYTES % (AUTO) 7.3 % (2.0-12.0); NEUTROPHILS # (AUTO) 11.3 /CMM (1.8-8.9); NEUTROPHILS % (AUTO) 85.8 % (43.0-81.0); PLATELET COUNT (AUTO) 181 /CMM (150-450); RED BLOOD CELL COUNT(AUTO) 4.91 MIL/uL (4.0-5.2); WHITE BLOOD COUNT (AUTO) 13.2 K/uL (4.3-11.0)
[2019-02-19 12:05] LABS: ALBUMIN 2.9 g/dL (3.4-5.0); BILIRUBIN,TOTAL 0.9 mg/dL (0.2-1.0); CALCIUM, SERUM 8.6 mg/dL (8.5-10.1); CREATININE 0.8 mg/dL (0.6-1.3); POTASSIUM 3.7 mmol/L (3.5-5.1); TOTAL PROTEIN, SERUM 6.1 g/dL (6.4-8.2)
== END 2019-02-19 23:59 | disposition home or self-care (01) ==
LOC: LAB 10:22
PROVIDERS: ATTEND Internal Medicine Interventional Cardiology
DX: I11.0 Hypertensive heart disease with heart failure (principal); I50.9 Heart failure, unspecified; I70.0 Atherosclerosis of aorta; J98.11 Atelectasis; J90 Pleural effusion, not elsewhere classified; I48.91 Unspecified atrial fibrillation
CPT/HCPCS: 36415; 71046; 80053-TC; 85025-TC

== ENCOUNTER 2019-11-03 19:45 | Emergency (ER) | payer MEDICARE, OTHER ==
[~2019-11-03] VITALS: Ht 167.6 cm; Wt 78.9 kg
[~2019-11-03 19:45] MED LIST changes: +MECL-182 PO; -MECL12.582 PO
--- NOTE | 2019-11-03 19:57 | NUR ---
PT CAME TO THE ED C/O SOB AND LUQ ABD PAIN X 2 DAYS. NOTED ELEVATED HR @ 150'S UPON ARRIVAL. MD MADE AWARE PT DENIES ANY CHEST PAIN AT THIS TIME. DR LIMON AT BEDSIDE. PT AAOX4, TACHYPNEIC @ 22BPM, PLACED ON O2 VIA N/C. PT CONNECTED TO THE SOCIAL WORK SUPERVISOR AND POX.
--- NOTE | 2019-11-03 19:57 | NUR ---
BLOOD COLLECTED AND SENT TO LAB
[2019-11-03] MEDS ORDERED: NITROGLYCERIN 0.4 MG/TAB BOTTLE ONE (20:12)
[2019-11-03] MEDS ORDERED: DILTIAZEM HCL 50 MG IV ONE (20:13)
--- NOTE | 2019-11-03 20:18 | NUR ---
PT MEDICATED ORDERED
[2019-11-03 20:23] LABS: BASOPHILS % (AUTO) 0.3 % (0.0-2.0); EOSINOPHILS % (AUTO) 0.1 % (0.0-6.0); HEMATOCRIT 44 % (33-45); HEMOGLOBIN 14.1 g/dL (11.5-14.8); LYMPHOCYTES # (AUTO) 0.9 /CMM (0.8-4.8); LYMPHOCYTES % (AUTO) 6.5 % (20.0-44.0); MEAN CORPUSCULAR HGB CONC 32 g/dl (31.0-36.0); MEAN CORPUSCULAR VOLUME 83 fL (82-100); MONOCYTES # (AUTO) 0.9 /CMM (0.1-1.30); MONOCYTES % (AUTO) 6.3 % (2.0-12.0); NEUTROPHILS # (AUTO) 12.6 /CMM (1.8-8.9); NEUTROPHILS % (AUTO) 86.8 % (43.0-81.0); PLATELET COUNT (AUTO) 306 /CMM (150-450); RED BLOOD CELL COUNT(AUTO) 5.33 MIL/uL (4.0-5.2); WHITE BLOOD COUNT (AUTO) 14.6 K/uL (4.3-11.0)
--- NOTE | 2019-11-03 20:26 | NUR ---
CALLED LAB FOR COVID SWAB
[2019-11-03 20:30] LABS: CALCIUM, SERUM 9.1 mg/dL (8.5-10.1); CREATININE 0.9 mg/dL (0.6-1.3); POTASSIUM 4.2 mmol/L (3.5-5.1)
[2019-11-03] MEDS ORDERED: NITROGLYCERIN 0.4 MG/TAB BOTTLE SL ONE (20:30)
[2019-11-03] MEDS ORDERED: DILTIAZEM HCL 50 MG IV IV ONE (20:30)
[2019-11-03] MEDS ORDERED: DILTIAZEM HCL 30 MG TABLET PO ONE (20:30)
--- NOTE | 2019-11-03 20:35 | NUR ---
CHEST XRAY AT BEDSIDE
[2019-11-03] MEDS ORDERED: DILTIAZEM HCL 30 MG TABLET ONE (20:38)
--- NOTE | 2019-11-03 21:00 | NUR ---
LAB CACLLED REGARDING COVID NEGATIE RESULT.
--- NOTE | 2019-11-03 21:14 | NUR ---
Patient does not wish to proceed with medical care recommended by Dr. Comer. Patient given information related to possible complications, up to and including , which could occur as a result of leaving the hospital at this time. Patient verbalizes understanding of risks involved due to leaving against medical advice. Patient has signed AMA form.
[2019-11-03 21:21] VITALS: BP 152/80
== END 2019-11-03 21:22 | disposition left against medical advice (07) ==
LOC: ER 19:45
DX: I11.0 Hypertensive heart disease with heart failure (principal); I50.9 Heart failure, unspecified; I48.91 Unspecified atrial fibrillation; Z87.442 Personal history of urinary calculi; Z79.899 Other long term (current) drug therapy
CPT/HCPCS: 36415; 71045; 80048; 83880; 84439; 84443; 84484; 85025; 87426; 93005; 96374; 99285; J3490; C9803-CS

== ENCOUNTER 2020-04-01 08:43 | Inpatient (IN) | payer MEDICARE, OTHER ==
[2020-04-01] VITALS: BP 114/46
[~2020-04-01] VITALS: Ht 167.6 cm; Wt 73.5 kg
[~2020-04-01 08:43] MED LIST changes: -MECL-182 PO; +MECL-183 PO
--- NOTE | 2020-04-01 09:00 | NUR ---
roger, sent by Dr. Vanegas due to "worsening heart failure and sob" BLE Edema, 97% on room air, denies chest pain. Patient a/ox4, son at bedside, speaks vietnamese. Patient assisted to bed, changed into a gown, attached to the youth nutritional monitor.
--- NOTE | 2020-04-01 09:05 | NUR ---
DR. Vo at bedside for evaluation.
[2020-04-01] MEDS ORDERED: POTA20TA83 PO (09:08)
[2020-04-01] MEDS ORDERED: FURO40TA5 PO (09:08)
[2020-04-01] MEDS ORDERED: DILT-3 PO (09:08)
[2020-04-01] MEDS ORDERED: ASPI-1420 PO (09:08)
[2020-04-01] MEDS ORDERED: DIGO250T PO (09:08)
--- NOTE | 2020-04-01 09:10 | NUR ---
IV line established, blood drawn and sent to lab.
[2020-04-01] MEDS ORDERED: FUROSEMIDE 40 MG/4 ML VIAL ONE (09:12)
--- NOTE | 2020-04-01 09:15 | NUR ---
Dr. Vanegas at bedside for eval.
[2020-04-01 09:17] LABS: BASOPHILS # (AUTO) 0.1 /CMM (0.0-0.2); BASOPHILS % (AUTO) 0.7 % (0.0-2.0); EOSINOPHILS % (AUTO) 0.8 % (0.0-6.0); HEMATOCRIT 46 % (33-45); HEMOGLOBIN 14.9 g/dL (11.5-14.8); LYMPHOCYTES # (AUTO) 1.4 /CMM (0.8-4.8); LYMPHOCYTES % (AUTO) 13.4 % (20.0-44.0); MEAN CORPUSCULAR HGB CONC 32 g/dl (31.0-36.0); MEAN CORPUSCULAR VOLUME 86 fL (82-100); MONOCYTES # (AUTO) 0.9 /CMM (0.1-1.30); MONOCYTES % (AUTO) 8.9 % (2.0-12.0); NEUTROPHILS % (AUTO) 76.2 % (43.0-81.0); PLATELET COUNT (AUTO) 221 /CMM (150-450); RED BLOOD CELL COUNT(AUTO) 5.38 MIL/uL (4.0-5.2); WHITE BLOOD COUNT (AUTO) 10.5 K/uL (4.3-11.0)
--- NOTE | 2020-04-01 09:19 | NUR ---
Covid swab done and sent to lab.
[2020-04-01] MEDS ORDERED: FUROSEMIDE 40 MG/4 ML VIAL IV ONE (09:30)
[2020-04-01 09:34] LABS: CALCIUM, SERUM 8.3 mg/dL (8.5-10.1); POTASSIUM 3.6 mmol/L (3.5-5.1)
--- NOTE | 2020-04-01 09:49 | NUR ---
negative rapid covid test reported by lab.
[2020-04-01] MEDS ORDERED: MAG HYDROX/AL HYDROX/SIMETH 30 ML UDC PO PRN (10:00)
[2020-04-01] MEDS ORDERED: HYDROCODONE/APAP 5/325MG TABLET PO PRN (10:00)
[2020-04-01] MEDS ORDERED: Z GUARD REMEDY 2 OZ OINT TP PRN (10:00)
[2020-04-01] MEDS ORDERED: ACETAMINOPHEN 325 MG TABLET PO PRN (10:00)
[2020-04-01] MEDS ORDERED: MELOXICAM 7.5 MG TABLET PO SCH (10:00)
[2020-04-01] MEDS ORDERED: TEMAZEPAM 15 MG CAPSULE PO PRN (10:00)
[2020-04-01] MEDS ORDERED: MAGNESIUM HYDROXIDE 30 ML UDC PO PRN (10:00)
[2020-04-01] MEDS ORDERED: HOME MED MISCELLANEOUS XX SCH (10:00)
[2020-04-01] MEDS ORDERED: ONDANSETRON HCL/PF 4 MG/2 ML VIAL IVP PRN (10:00)
[2020-04-01] MEDS ORDERED: MORPHINE SULFATE INJ 2 MG/ML DISP.SYRIN IV PRN (10:00)
[2020-04-01 10:12] LABS: BILIRUBIN,URINE Negative (NEGATIVE); COLOR,URINE YELLOW (YELLOW); LEUKOCYTE ESTERASE ,URINE Negative (NEGATIVE); NITRITE, URINE Positive (NEGATIVE); PH,URINE 6.5 (5.0-8.0); PROTEIN,URINE Negative (NEGATIVE); UGLUCOSE Negative (NEGATIVE); UROBILINOGEN,URINE 0.2 EU/dL (0.2)
[2020-04-01 10:19] LABS: BACTERIA,URINE Moderate /HPF (None Seen); RBC,URINE 0-2 /HPF (0-2); SQUAMOUS EPITHELIAL CELL,UR Few /HPF (None Seen); WBC,URINE 0-2 /HPF (0-3)
[2020-04-01] MEDS ORDERED: DILTIAZEM HCL 25 MG IV ONE (10:25)
[2020-04-01] MEDS ORDERED: ASPIRIN 81 MG TAB.CHEW ONE (10:25)
[2020-04-01] MEDS ORDERED: DILTIAZEM HCL IV 125 MG in IV D5W 100 ML IV ONE (10:30)
[2020-04-01] MEDS ORDERED: DILTIAZEM HCL 25 MG IV IVP ONE (10:30)
[2020-04-01] MEDS ORDERED: ASPIRIN 81 MG TAB.CHEW PO ONE (10:30)
--- NOTE | 2020-04-01 10:41 | NUR ---
BED REQUESTED FROM NURSING LOOM STOP CHECKER.
--- NOTE | 2020-04-01 11:31 | NUR ---
PATIENT RESTING, HEART RATE IMPROVED. PATIENT DENIES ANY PAIN AT THIS TIME. VSS.
--- NOTE | 2020-04-01 12:42 | NUR ---
REPORT GIVEN TO TERRENCE STEWART FOR NGOC.
--- NOTE | 2020-04-01 12:59 | NUR ---
PATIENT TRANSFERRED TO ROOM 323-1 VIA ACLS PROTOCOL, PATIENT IN STABLE CONDITION. NEEDS ATTENDED. ENDORSED CHARITY MOLINA TO TERRENCE STEWART.
--- NOTE | 2020-04-01 13:15 | NUR ---
RN NOTES RECEIVED PT FROM ER. REPORT GIVEN BY ELVA STEWART. A/O X4. STABLE ON ROOM AIR. TELE MONITOR SHOWS AFIB. AMBULATORY. SKIN IS INTACT. NO PAIN REPORTED AT THIS TIME. IV ACCESS AT L WRIST #18 INTACT AND PATENT. CARDIZEM RUNNING @5MLS/HR. HR @90S. BLE EDEMA NOTED. BELONGING LIST SIGNED. SAFETY MEASURES IN PLACE. CALL LIGHT WITHIN REACH. BED LOCKED AND AT LOWEST POSITION WITH SIDE RAILS UP X2. HOB ELEVATED. WILL CONTINUE TO MONITOR.
[2020-04-01] MEDS ORDERED: CLONIDINE HCL 0.1 MG TABLET PO PRN (13:30)
[2020-04-01] MEDS: DIGOXIN 0.25 MG TABLET PO SCH (13:56)
[2020-04-01] MEDS: FUROSEMIDE 100 MG/10 ML VIAL IV SCH ×3 (13:56→20:59)
[2020-04-01] MEDS: FLUTICASONE/VILANTEROL 1 EACH BLST.W.DEV IH SCH (15:15)
[2020-04-01 16:00] VITALS: BP 123/86
[2020-04-01] MEDS: MECLIZINE HCL 12.5 MG TABLET PO SCH (17:38)
[2020-04-01] MEDS: RIVAROXABAN 15 MG TABLET PO SCH (18:10)
--- NOTE | 2020-04-01 18:51 | NUR ---
RN CLOSING NOTES PT RESTING IN BED. A/O X4. STABLE ON ROOM AIR. TELE MONITOR SHOWS AFIB. AMBULATORY. SKIN IS INTACT. NO PAIN REPORTED AT THIS TIME. IV ACCESS AT L WRIST #18 INTACT AND PATENT. CARDIZEM RUNNING @5MLS/HR. HR @90S. BLE EDEMA NOTED. SAFETY MEASURES IN PLACE. CALL LIGHT WITHIN REACH. BED LOCKED AND AT LOWEST POSITION WITH SIDE RAILS UP X2. HOB ELEVATED. WILL ENDORSE TO NIGHT NURSE FOR NGOC.
--- NOTE | 2020-04-01 19:30 | NUR ---
FIRE CONTROL TECHNICIAN B NOTES RECEIVED SITTING ON EDGE OF BED,BREATHING REGULAR,NOT IN ANY FORM OF DISTRESS.SALINE LOCK LEFT WRIST INTACT AND PATENT,CARDIZEM DRIP IN PROGRESS AT 5ML/HR RATE VIA IV PUMP,AFIB-97 ON TELE MONITOR.NOTED SWELLING ON BOTH LOWER LEGS,ENCOURAGED TO ELEVATE ON PILLOWS WHILE ON BED.CALL LIGHT IN REACH,NEEDS ANTICIPATED.
[2020-04-01 20:00] VITALS: BP 120/61
[2020-04-01] MEDS: CARVEDILOL 12.5 MG TABLET PO SCH (20:59)
[2020-04-02] VITALS: BP_SYST 114; BP_SYST 120; BP_DIAS 46; BP_DIAS 61
[2020-04-02 04:00] VITALS: BP 104/72
--- NOTE | 2020-04-02 05:00 | NUR ---
FINANCIAL AID ADVISOR NOTES C/O PAIN ON IV SITE,NOTED SLIGHT REDNESS.NEW SALINE LOCK PLACE ON RIGHT WRIST #22,CARDIZEM DRIP RE STARTED AT 5ML/HR RATE.
[2020-04-02 05:59] LABS: BASOPHILS # (AUTO) 0.1 /CMM (0.0-0.2); BASOPHILS % (AUTO) 0.6 % (0.0-2.0); EOSINOPHILS % (AUTO) 1.9 % (0.0-6.0); HEMATOCRIT 43 % (33-45); HEMOGLOBIN 13.9 g/dL (11.5-14.8); LYMPHOCYTES # (AUTO) 1.2 /CMM (0.8-4.8); LYMPHOCYTES % (AUTO) 15.1 % (20.0-44.0); MEAN CORPUSCULAR HGB CONC 32 g/dl (31.0-36.0); MEAN CORPUSCULAR VOLUME 86 fL (82-100); MONOCYTES # (AUTO) 0.9 /CMM (0.1-1.30); MONOCYTES % (AUTO) 10.9 % (2.0-12.0); NEUTROPHILS # (AUTO) 5.8 /CMM (1.8-8.9); NEUTROPHILS % (AUTO) 71.5 % (43.0-81.0); PLATELET COUNT (AUTO) 171 /CMM (150-450); RED BLOOD CELL COUNT(AUTO) 5.02 MIL/uL (4.0-5.2); WHITE BLOOD COUNT (AUTO) 8.1 K/uL (4.3-11.0)
--- NOTE | 2020-04-02 06:15 | NUR ---
PROCESS LABORATORY SPECIALIST NOTES NOTED NEW ORDERS FROM DR MCCOLLUM,NOTED AND CARRIED OUT.
[2020-04-02 06:22] LABS: ALBUMIN 2.5 g/dL (3.4-5.0); BILIRUBIN,TOTAL 0.9 mg/dL (0.2-1.0); CALCIUM, SERUM 8.3 mg/dL (8.5-10.1); MAGNESIUM 1.7 mg/dL (1.8-2.4); PHOSPHORUS 3.8 mg/dL (2.5-4.9)
[2020-04-02 06:36] LABS: THYROID STIMULATING HORMONE 1.709 uIU/mL (0.358-3.74)
[2020-04-02] MEDS: FUROSEMIDE 100 MG/10 ML VIAL IV SCH ×5 (06:36→21:13)
--- NOTE | 2020-04-02 07:06 | NUR ---
LINUX ARCHITECT NOTES BLE REMAINS SWOLLEN WEIGHT THIS MORNING 192 LBS,OUTPUT 4100ML THRU OUT THE NIGHT.NEGATIVE FOR SOB,CARDIZEM DRIP ALMOST DONE.AFIB 97 ON TELE MONITOR.IN NO ACUTE DISTRESS.
[2020-04-02] MEDS: RIVAROXABAN 15 MG TABLET PO SCH ×2 (07:44→17:17)
[2020-04-02] MEDS: PANTOPRAZOLE 40 MG TABLET.DR PO SCH (07:44)
--- NOTE | 2020-04-02 07:50 | NUR ---
MS/RN OPENING NOTE RECEIVED PATIENT FROM SELECT BANKER NURSE PATIENT A/O X4 AWAKE IN BED. PATIENT DENIES OF ANY PAIN AT THE MOMENT. NO ACUTE DISTRESS NOTED AT THIS TIME. PATIENT ON ROOM AIR, TOLERATING WELL NO SOB NOTED. BREATHING EVEN, NON LABORED. SAFETY MEASURE IN PLACE, BED LOCKED AND IN LOWEST POSITION, CALL LIGHT WITHIN REACH. WILL CONTINUE TO MONITOR AND ENSURE SAFETY
[2020-04-02 08:00] VITALS: BP 148/86
[2020-04-02] MEDS: ASPIRIN EC 81 MG TABLET.DR PO SCH (08:51)
[2020-04-02] MEDS: POTASSIUM CHLORIDE 20 MEQ TAB.PRT.SR PO SCH ×7 (08:51→18:56)
[2020-04-02] MEDS: MECLIZINE HCL 12.5 MG TABLET PO SCH ×2 (08:51→16:51)
[2020-04-02] MEDS: clonazePAM 0.5 MG TABLET PO SCH (08:51)
[2020-04-02] MEDS: LOSARTAN POTASSIUM 50 MG TABLET PO SCH (08:52)
[2020-04-02] MEDS: CARVEDILOL 12.5 MG TABLET PO SCH ×2 (08:53→21:13)
[2020-04-02] MEDS ORDERED: DILTIAZEM HCL CD 240 MG PO SCH (09:00)
[2020-04-02] MEDS: FLUTICASONE/VILANTEROL 1 EACH BLST.W.DEV IH SCH (09:02)
[2020-04-02] MEDS: Magnesium 1GM/D5W 100ML PREMIX 100 ML IV SCH ×2 (10:26→11:26)
[2020-04-02] MEDS ORDERED: Magnesium 1GM/D5W 100ML PREMIX PIGGYBACK IV ONE (10:30)
[2020-04-02] MEDS: DIGOXIN 0.25 MG TABLET PO SCH (12:28)
[2020-04-02 16:00] VITALS: BP 107/70
--- NOTE | 2020-04-02 19:27 | NUR ---
MS/RN CLOSING NOTE PATIENT A/O X4 AWAKE IN BED. PATIENT DENIES OF ANY PAIN AT THE MOMENT. NO ACUTE DISTRESS NOTED AT THIS TIME. PATIENT ON ROOM AIR, TOLERATING WELL NO SOB NOTED. BREATHING EVEN, NON LABORED. SAFETY MEASURE IN PLACE, BED LOCKED AND IN LOWEST POSITION, CALL LIGHT WITHIN REACH. ALL NEEDS MET THROUGHOUT THE SHIFT. WILL ENDORSE TO ELASTIC ATTACHER OVERLOCK NURSE.
[2020-04-02 20:00] VITALS: BP 116/74
--- NOTE | 2020-04-02 20:00 | NUR ---
OFFICE ADMINISTRATOR NOTE: PATIENT RESTING IN BED, NO ACUTE DISTRESS NOTED. BREATHING EVEN AND UNLABORED, NO SOB NOTED. TELE READING AFIB 80. BED LOCKED AND IN LOWEST POSITION, CALL LIGHT IN REACH. WILL CONTINUE TO MONITOR THROUGHOUT SHIFT.
[2020-04-03] VITALS: BP 101/52
[2020-04-03] MEDS: FUROSEMIDE 100 MG/10 ML VIAL IV SCH ×4 (01:06→18:58)
[2020-04-03 04:00] VITALS: BP 102/49
--- NOTE | 2020-04-03 06:20 | NUR ---
DIRECTOR OF RETAIL MARKETING NOTE: PATIENT RESTING IN BED, NO ACUTE DISTRESS NOTED. BREATHING EVEN AND UNLABORED, NO SOB NOTED. TELE READING AFIB 70-80. BED LOCKED AND IN LOWEST POSITION, CALL LIGHT IN REACH. WILL ENDORSE TO DAY NURSE TO CONTINUE WITH PLAN OF CARE.
[2020-04-03 06:25] LABS: BASOPHILS % (AUTO) 0.4 % (0.0-2.0); EOSINOPHILS % (AUTO) 1.8 % (0.0-6.0); HEMATOCRIT 42 % (33-45); HEMOGLOBIN 13.8 g/dL (11.5-14.8); LYMPHOCYTES # (AUTO) 0.9 /CMM (0.8-4.8); LYMPHOCYTES % (AUTO) 13.6 % (20.0-44.0); MEAN CORPUSCULAR HGB CONC 33 g/dl (31.0-36.0); MEAN CORPUSCULAR VOLUME 85 fL (82-100); MONOCYTES # (AUTO) 0.7 /CMM (0.1-1.30); MONOCYTES % (AUTO) 10.8 % (2.0-12.0); NEUTROPHILS # (AUTO) 5.1 /CMM (1.8-8.9); NEUTROPHILS % (AUTO) 73.4 % (43.0-81.0); PLATELET COUNT (AUTO) 162 /CMM (150-450); RED BLOOD CELL COUNT(AUTO) 4.95 MIL/uL (4.0-5.2); WHITE BLOOD COUNT (AUTO) 6.9 K/uL (4.3-11.0)
[2020-04-03 06:38] LABS: ALBUMIN 2.2 g/dL (3.4-5.0); BILIRUBIN,TOTAL 0.5 mg/dL (0.2-1.0); CALCIUM, SERUM 8.3 mg/dL (8.5-10.1); MAGNESIUM 1.9 mg/dL (1.8-2.4); PHOSPHORUS 3.7 mg/dL (2.5-4.9); POTASSIUM 3.9 mmol/L (3.5-5.1); TOTAL PROTEIN, SERUM 4.7 g/dL (6.4-8.2)
--- NOTE | 2020-04-03 07:29 | NUR ---
PALAEONTOLOGIST OPENING NOTES RECEIVED PATIENT IN BED, AWAKE, A/O X4. PATIENT ON ROOM AIR; BREATHING EVEN AND UNLABORED, NO SOB NOTED AT THIS TIME. NO COMPLAINS OF PAIN JUST USUAL BURNING IN HER FEET. CURRENT TELE MONITOR WITH A READING OF A-FIB 105. R WRIST IV ACCES G # 22 PRESENT AND INTACT. SAFETY PRECAUTIONS IN PLACE; BED IN LOW POSITION AND LOCKED, RAILS UP X2, CALL LIGHT WITHIN REACH. WILL CONTINUE TO MONITOR PATIENT.
[2020-04-03] MEDS: clonazePAM 0.5 MG TABLET PO SCH (08:06)
[2020-04-03] MEDS: POTASSIUM CHLORIDE 20 MEQ TAB.PRT.SR PO SCH ×4 (08:06→11:18)
[2020-04-03] MEDS: PANTOPRAZOLE 40 MG TABLET.DR PO SCH (08:06)
[2020-04-03] MEDS: MECLIZINE HCL 12.5 MG TABLET PO SCH ×2 (08:06→16:42)
[2020-04-03] MEDS: ASPIRIN EC 81 MG TABLET.DR PO SCH (08:10)
[2020-04-03] MEDS: LOSARTAN POTASSIUM 50 MG TABLET PO SCH (08:11)
[2020-04-03] MEDS: CARVEDILOL 12.5 MG TABLET PO SCH ×2 (08:11→21:00)
[2020-04-03] MEDS: FLUTICASONE/VILANTEROL 1 EACH BLST.W.DEV IH SCH (08:12)
[2020-04-03] MEDS: RIVAROXABAN 15 MG TABLET PO SCH ×2 (08:12→18:03)
[2020-04-03 08:14] VITALS: BP 113/64
--- NOTE | 2020-04-03 13:06 | NUR ---
MS RN NOTES PATIENT WITH A BLOOD PRESSURE OF 100/61. PER PATIENT SHE FEELS SLIGHTLY DIZZY. 1300 LASIX NOT ADMINISTERED.
[2020-04-03] MEDS: DIGOXIN 0.25 MG TABLET PO SCH (13:22)
--- NOTE | 2020-04-03 13:30 | NUR ---
MS RN NOTES PATIENT WITH LOW BP; MANUAL 99/61
[2020-04-03 16:00] VITALS: BP 106/55
[2020-04-03 18:36] LABS: CALCIUM, SERUM 7.6 mg/dL (8.5-10.1); POTASSIUM 4.6 mmol/L (3.5-5.1)
--- NOTE | 2020-04-03 18:40 | NUR ---
MS RN NOTES RETOOK BP. BP 129/68 HR 98 LAST DOSE OF LASIX ADMINISTERED.
--- NOTE | 2020-04-03 19:08 | NUR ---
LARD MAKER CLOSING NOTES PATIENT SITTING AT THE EDGE OF THE BED, AWAKE, A/O X4. PATIENT ON ROOM AIR; BREATHING EVEN AND UNLABORED, NO SOB NOTED DURING THE DAY. NO COMPLAINS OF PAIN. CURRENT. R WRIST IV ACCES G # 22 PRESENT AND INTACT. ALL NEEDS ATTENDED THROUGHOUT THE DAY. SAFETY PRECAUTIONS IN PLACE; BED IN LOW POSITION AND LOCKED, RAILS UP X2, CALL LIGHT WITHIN REACH. WILL ENDORSE TO COMMUNICATION COORDINATOR NURSE.
--- NOTE | 2020-04-03 19:30 | NUR ---
PT RECEIVED IN HER ROOM AMBULATING TO THE BATHROOM WITH A STEADY GAIT. RESPIRATIONS EVEN AND UNLABORED, DENIES SOB DYSPNEA AND PAIN. EDEMA NOTED TO BILAT ANKLES AND FEET. ENCOURAGED TO ELEVATE BLE.
[2020-04-03 20:00] VITALS: BP 103/73
--- NOTE | 2020-04-04 05:27 | NUR ---
PT RESTING IN BED. NO C/O PAIN OR DISCOMFORT. AMBULATED TO BATHROOM THROUGHOUT THE NIGHT. PRIMARY ASSESSMENT UNCHANGED. PT STABLE AT THIS TIME.
[2020-04-04 06:50] LABS: BASOPHILS # (AUTO) 0.1 /CMM (0.0-0.2); BASOPHILS % (AUTO) 0.9 % (0.0-2.0); HEMATOCRIT 42 % (33-45); HEMOGLOBIN 13.6 g/dL (11.5-14.8); LYMPHOCYTES # (AUTO) 1.1 /CMM (0.8-4.8); LYMPHOCYTES % (AUTO) 17.2 % (20.0-44.0); MEAN CORPUSCULAR HGB CONC 32 g/dl (31.0-36.0); MEAN CORPUSCULAR VOLUME 85 fL (82-100); MONOCYTES # (AUTO) 0.7 /CMM (0.1-1.30); MONOCYTES % (AUTO) 10.4 % (2.0-12.0); NEUTROPHILS # (AUTO) 4.4 /CMM (1.8-8.9); NEUTROPHILS % (AUTO) 69.5 % (43.0-81.0); PLATELET COUNT (AUTO) 189 /CMM (150-450); RED BLOOD CELL COUNT(AUTO) 4.93 MIL/uL (4.0-5.2); WHITE BLOOD COUNT (AUTO) 6.4 K/uL (4.3-11.0)
[2020-04-04 07:13] LABS: CALCIUM, SERUM 8.4 mg/dL (8.5-10.1); CREATININE 0.9 mg/dL (0.6-1.3); POTASSIUM 4.5 mmol/L (3.5-5.1)
[2020-04-04 08:00] VITALS: BP 122/66
[2020-04-04] MEDS: POTASSIUM CHLORIDE 20 MEQ TAB.PRT.SR PO SCH (08:27)
[2020-04-04] MEDS: ASPIRIN EC 81 MG TABLET.DR PO SCH (08:27)
[2020-04-04] MEDS: FLUTICASONE/VILANTEROL 1 EACH BLST.W.DEV IH SCH (08:27)
[2020-04-04] MEDS: LOSARTAN POTASSIUM 50 MG TABLET PO SCH (08:28)
[2020-04-04] MEDS: MECLIZINE HCL 12.5 MG TABLET PO SCH ×2 (08:28→17:36)
[2020-04-04] MEDS: clonazePAM 0.5 MG TABLET PO SCH (08:28)
[2020-04-04] MEDS: PANTOPRAZOLE 40 MG TABLET.DR PO SCH (08:29)
[2020-04-04] MEDS: CARVEDILOL 12.5 MG TABLET PO SCH ×2 (08:29→21:37)
[2020-04-04] MEDS: RIVAROXABAN 15 MG TABLET PO SCH ×2 (08:31→17:36)
--- NOTE | 2020-04-04 09:15 | NUR ---
m/s dehydrator tender: cardio f/u seen by dr. palma with new orders. orders acknowledged.
[2020-04-04 09:40] VITALS: BP 118/66
[2020-04-04] MEDS: FUROSEMIDE 100 MG/10 ML VIAL IV SCH ×3 (09:40→17:38)
[2020-04-04 13:31] VITALS: BP 110/56
[2020-04-04] MEDS: DIGOXIN 0.25 MG TABLET PO SCH (13:33)
[2020-04-04 16:00] VITALS: BP 124/70
--- NOTE | 2020-04-04 19:10 | NUR ---
m/s metal shaping machine operator: notes report given to jonnathan (max) for continuity of care.
--- NOTE | 2020-04-04 19:37 | NUR ---
MS RN OPENING NOTES PATIENT A/OX4; ABLE TO MAKE NEEDS KNOWN. TOLERATING ROOM AIR WELL. DENIES PAIN OR C/O DISTRESS. IV #22G TO RIGHT WRIST S/L; PATENT AND INTACT. SAFETY MEASURES IN PLACE; BED IN LOWEST LOCKED POSITION, SIDE RAILS UPX2, CALL LIGHT WITHIN EASY REACH. WILL CONTINUE PLAN OF CARE.
[2020-04-04 20:00] VITALS: BP 106/57
[2020-04-05] MEDS: PANTOPRAZOLE 40 MG TABLET.DR PO SCH (06:50)
--- NOTE | 2020-04-05 07:38 | NUR ---
MS RN CLOSING NOTES PATIENT A/OX4; ABLE TO MAKE NEEDS KNOWN. TOLERATING ROOM AIR WELL. DENIES PAIN OR C/O DISTRESS. IV #22G TO RIGHT WRIST S/L; PATENT AND INTACT. SAFETY MEASURES IN PLACE; BED IN LOWEST LOCKED POSITION, SIDE RAILS UPX2, CALL LIGHT WITHIN EASY REACH. ENDORSE PLAN OF CARE TO ONCOMING RN
--- NOTE | 2020-04-05 07:42 | NUR ---
MS RN NOTE PATIENT RECEIVED IN STABLE CONDITION, VSS, PATIENT REPORTS NO PAIN AT THIS TIME, POC REVIEWED AND TO BE FOLLOWED. BED LOCKED IN LOWEST POSITION, ALL SAFETY MEASURES FOLLOWED. WILL CONTINUE WITH PATIENT'S PLAN OF CARE. END NOTE BN
[2020-04-05 07:51] LABS: ALBUMIN 2.2 g/dL (3.4-5.0); BILIRUBIN,TOTAL 0.5 mg/dL (0.2-1.0); CALCIUM, SERUM 8.3 mg/dL (8.5-10.1); CREATININE 0.9 mg/dL (0.6-1.3); MAGNESIUM 1.9 mg/dL (1.8-2.4); PHOSPHORUS 3.8 mg/dL (2.5-4.9); POTASSIUM 3.8 mmol/L (3.5-5.1); TOTAL PROTEIN, SERUM 4.7 g/dL (6.4-8.2)
[2020-04-05 08:00] VITALS: BP 100/61
[2020-04-05] MEDS: ASPIRIN EC 81 MG TABLET.DR PO SCH (08:50)
[2020-04-05] MEDS: clonazePAM 0.5 MG TABLET PO SCH (08:51)
[2020-04-05] MEDS: CARVEDILOL 12.5 MG TABLET PO SCH ×2 (08:51→21:26)
[2020-04-05] MEDS: MECLIZINE HCL 12.5 MG TABLET PO SCH ×2 (08:51→17:15)
[2020-04-05] MEDS: LOSARTAN POTASSIUM 50 MG TABLET PO SCH (08:52)
[2020-04-05] MEDS: RIVAROXABAN 15 MG TABLET PO SCH ×2 (08:56→17:15)
[2020-04-05] MEDS: POTASSIUM CHLORIDE 20 MEQ TAB.PRT.SR PO SCH ×4 (09:07→12:15)
[2020-04-05] MEDS: FLUTICASONE/VILANTEROL 1 EACH BLST.W.DEV IH SCH (09:08)
[2020-04-05] MEDS ORDERED: acetaZOLAMIDE SODIUM 500 MG/VIAL VIAL IV ONE (10:00)
[2020-04-05 16:00] VITALS: BP 115/67
[2020-04-05] MEDS: DIGOXIN 0.25 MG TABLET PO SCH (16:16)
[2020-04-05 20:00] VITALS: BP 115/59
--- NOTE | 2020-04-06 01:28 | NUR ---
RECEIVED PATIENT IN BED, AWAKE, A/O X4. PATIENT ON ROOM AIR; BREATHING EVEN AND UNLABORED, NO SOB NOTED AT THIS TIME. SAFETY PRECAUTIONS IN PLACE; BED IN LOW POSITION AND LOCKED, RAILS UP X2, CALL LIGHT WITHIN REACH. WILL CONTINUE TO MONITOR PATIENT. PATIENT REQUEST DOOR TO BE PULLED UP. PATIENT DENIES ANY SOB.
[2020-04-06 07:10] LABS: BASOPHILS % (AUTO) 0.7 % (0.0-2.0); EOSINOPHILS % (AUTO) 2.7 % (0.0-6.0); HEMATOCRIT 41 % (33-45); HEMOGLOBIN 13.1 g/dL (11.5-14.8); LYMPHOCYTES % (AUTO) 18.6 % (20.0-44.0); MEAN CORPUSCULAR HGB CONC 32 g/dl (31.0-36.0); MEAN CORPUSCULAR VOLUME 85 fL (82-100); MONOCYTES # (AUTO) 0.6 /CMM (0.1-1.30); MONOCYTES % (AUTO) 12.5 % (2.0-12.0); NEUTROPHILS # (AUTO) 3.4 /CMM (1.8-8.9); NEUTROPHILS % (AUTO) 65.5 % (43.0-81.0); PLATELET COUNT (AUTO) 170 /CMM (150-450); RED BLOOD CELL COUNT(AUTO) 4.83 MIL/uL (4.0-5.2); WHITE BLOOD COUNT (AUTO) 5.1 K/uL (4.3-11.0)
--- NOTE | 2020-04-06 08:00 | NUR ---
RN OPENING NOTE PT IS A/O X3 AND MAORI SPEAKING. RESTING IN BED AWAKE. NO COMPLAINT OF PAIN. CURRENTLY ON RA. NO SOB OR RESPIRATORY DISTRESS PRESENT. AMBULATORY. BEDSIDE COMMODE PRESENT. SKIN INTACT. HL PRESENT ON R WRIST 22G. SAFETY MEASURES IN PLACE. SIDE RAILS RAISED. BED LOWERED. WILL CONTINUE TO MONITOR.
[2020-04-06 08:07] VITALS: BP 129/63
[2020-04-06 08:46] LABS: ALBUMIN 2.3 g/dL (3.4-5.0); BILIRUBIN,TOTAL 0.4 mg/dL (0.2-1.0); CALCIUM, SERUM 8.5 mg/dL (8.5-10.1); CREATININE 0.8 mg/dL (0.6-1.3); PHOSPHORUS 3.4 mg/dL (2.5-4.9); POTASSIUM 3.9 mmol/L (3.5-5.1); TOTAL PROTEIN, SERUM 4.9 g/dL (6.4-8.2)
[2020-04-06] MEDS: LOSARTAN POTASSIUM 50 MG TABLET PO SCH (09:00)
[2020-04-06] MEDS: CARVEDILOL 12.5 MG TABLET PO SCH ×2 (09:00→20:56)
[2020-04-06] MEDS: POTASSIUM CHLORIDE 20 MEQ TAB.PRT.SR PO SCH (09:12)
[2020-04-06] MEDS: MECLIZINE HCL 12.5 MG TABLET PO SCH ×2 (09:12→17:33)
[2020-04-06] MEDS: ASPIRIN EC 81 MG TABLET.DR PO SCH (09:12)
[2020-04-06] MEDS: clonazePAM 0.5 MG TABLET PO SCH (09:12)
[2020-04-06] MEDS: FUROSEMIDE 40 MG TABLET PO SCH (09:13)
[2020-04-06] MEDS: FLUTICASONE/VILANTEROL 1 EACH BLST.W.DEV IH SCH (09:16)
[2020-04-06] MEDS: PANTOPRAZOLE 40 MG TABLET.DR PO SCH (09:16)
[2020-04-06] MEDS: RIVAROXABAN 15 MG TABLET PO SCH ×2 (09:29→17:33)
[2020-04-06] MEDS: DIGOXIN 0.25 MG TABLET PO SCH (14:34)
[2020-04-06 16:00] VITALS: BP 123/91
[2020-04-06] MEDS: FUROSEMIDE 40 MG/4 ML VIAL IV SCH ×2 (17:33→20:55)
--- NOTE | 2020-04-06 19:08 | NUR ---
RN CLOSING NOTE PT IS A/O X3 AND ALBANIAN SPEAKING. RESTING IN BED AWAKE. NO COMPLAINT OF PAIN. CURRENTLY ON RA. NO SOB OR RESPIRATORY DISTRESS PRESENT. AMBULATORY. BEDSIDE COMMODE PRESENT. SKIN INTACT. HL PRESENT ON R WRIST 22G. SAFETY MEASURES IN PLACE. SIDE RAILS RAISED. BED LOWERED. ROUTINE MEDS GIVEN. REPORT GIVEN TO NIGHT NURSE
[2020-04-06 20:00] VITALS: BP 147/66
[2020-04-07] MEDS ORDERED: FUROSEMIDE 40 MG/4 ML VIAL ONE (03:06)
[2020-04-07] MEDS: FUROSEMIDE 40 MG/4 ML VIAL IV SCH (03:08)
[2020-04-07 06:59] LABS: POTASSIUM 3.7 mmol/L (3.5-5.1)
[2020-04-07 08:00] VITALS: BP 117/50
--- NOTE | 2020-04-07 08:00 | NUR ---
MS RN OPENING NOTE PATIENT IS IN BED RESTING. PATIENT IS IN NO ACUTE DISTRESS. PATIENT IS ON ROOM AIR. TOLERATING WELL. NO SOB NOTED. PATIENT IS ON FLUID RESTRICTION OF 1.5L WITH DAILY WEIGHT MEASUREMENTS. SAFETY PRECAUTIONS ARE IN PLACE. BED IN THE LOWEST POSITION, SIDE RAILS ARE UP. CALL LIGHT WITHIN REACH. WILL CONTINUE TO MONITOR CLOSELY.
[2020-04-07] MEDS: ASPIRIN EC 81 MG TABLET.DR PO SCH (08:28)
[2020-04-07] MEDS: PANTOPRAZOLE 40 MG TABLET.DR PO SCH (08:28)
[2020-04-07] MEDS: POTASSIUM CHLORIDE 20 MEQ TAB.PRT.SR PO SCH (08:29)
[2020-04-07] MEDS: FUROSEMIDE 40 MG TABLET PO SCH (08:29)
[2020-04-07] MEDS: clonazePAM 0.5 MG TABLET PO SCH (08:29)
[2020-04-07] MEDS: MECLIZINE HCL 12.5 MG TABLET PO SCH (08:29)
[2020-04-07] MEDS: RIVAROXABAN 15 MG TABLET PO SCH (08:31)
[2020-04-07] MEDS: FLUTICASONE/VILANTEROL 1 EACH BLST.W.DEV IH SCH (08:33)
[2020-04-07 09:00] VITALS: BP 100/53
[2020-04-07] MEDS: CARVEDILOL 12.5 MG TABLET PO SCH (09:00)
[2020-04-07] MEDS: LOSARTAN POTASSIUM 50 MG TABLET PO SCH (09:00)
--- NOTE | 2020-04-07 09:28 | NUR ---
MS RN NOTE PATIENTS BLOOD PRESSURE MEDICATIONS WERE NOT ADMINISTERED PATIENTS BLOOD PRESSURE IS 100/53, PULSE 88
[2020-04-07] MEDS: DIGOXIN 0.25 MG TABLET PO SCH (12:24)
[2020-04-07] MEDS ORDERED: FLUT1BLS IH (15:02)
[2020-04-07] MEDS ORDERED: FURO40TA5 PO ×2 (15:02→15:07)
[2020-04-07] MEDS ORDERED: MECL-183 PO (15:02)
[2020-04-07] MEDS ORDERED: RIVA10TA PO (15:02)
[2020-04-07] MEDS ORDERED: POTA20TA83 PO (15:02)
[2020-04-07] MEDS ORDERED: RIVA15TA PO (15:02)
[2020-04-07] MEDS ORDERED: PANT40TA2 PO (15:02)
[2020-04-07] MEDS ORDERED: LOSA50TA3 PO (15:02)
[2020-04-07] MEDS ORDERED: Digoxin PO (15:02)
--- NOTE | 2020-04-07 16:23 | NUR ---
MS AUTOMOBILE CLUB INFORMATION CLERK NOTE PATIENT IS IN NO ACUTE DISTRESS. PATIENT IS MEDICALLY STABLE TO BE DISCHARGED. VITAL SIGNS ARE WITHIN NORMAL LIMITS. SKIN IS INTACT. DISCHARGE EDUCATION PROVIDED TO THE PATIENT. PATIENT VERBALIZED UNDERSTANDING. DURING PATIENTS STAY ALL THE NEEDS WERE ADDRESSED. PATIENTS IV LINE AND ID BAND REMOVED. DISCHARGE PATIENT TO HOME. MD IS AWARE. PATIENT IS BEING PICKED UP BY HER SON.
== END 2020-04-07 16:00 | disposition home or self-care (01) | DRG 280 ==
LOC: ER 08:47 → TELE 12:23 → MED 04-03 08:40
PROVIDERS: ADMIT Nurse Practitioner Acute Care; ATTEND Nurse Practitioner Acute Care
DX: I13.0 Hypertensive heart and chronic kidney disease with heart failure and stage 1 through stage 4 chronic kidney disease, or unspecified chronic kidney disease (principal); I21.A1 Myocardial infarction type 2; I50.43 Acute on chronic combined systolic (congestive) and diastolic (congestive) heart failure; I82.412 Acute embolism and thrombosis of left femoral vein; I82.492 Acute embolism and thrombosis of other specified deep vein of left lower extremity; E87.0 Hyperosmolality and hypernatremia; I42.9 Cardiomyopathy, unspecified; E78.5 Hyperlipidemia, unspecified; J44.9 Chronic obstructive pulmonary disease, unspecified; E83.42 Hypomagnesemia; Z79.899 Other long term (current) drug therapy; Z87.442 Personal history of urinary calculi; M17.0 Bilateral primary osteoarthritis of knee; Z79.82 Long term (current) use of aspirin; Z79.51 Long term (current) use of inhaled steroids; I70.0 Atherosclerosis of aorta; I34.0 Nonrheumatic mitral (valve) insufficiency; Z68.33 Body mass index [BMI] 33.0-33.9, adult; E66.9 Obesity, unspecified; N18.9 Chronic kidney disease, unspecified; E03.9 Hypothyroidism, unspecified; I48.91 Unspecified atrial fibrillation; E87.6 Hypokalemia
CPT/HCPCS: 36415; 71045-TC; 80048-TC; 80053-TC; 80061-TC; 80162-TC; 81001; 83735-TC; 83880; 84100-TC; 84439-TC; 84443-TC; 84484-TC; 85025-TC; 85730-TC; 87081-TC; 93307-TC; 93970-TC; 97112-TC; 97116-TC; 97530-TC; C9803; G0378; J1120; J1940; J3475; J3490; J7050; J7060; J8597

== ENCOUNTER 2020-04-28 12:08 | Outpatient (CLI) | payer MEDICARE, OTHER ==
[~2020-04-28 12:08] MED LIST changes: +ASPI-1420 PO; +DIGO250T PO; +DILT-3 PO; +Digoxin PO; +FLUT1BLS IH; +FURO40TA5 PO; +LOSA50TA3 PO; -MECL-183 PO; +MECL-225 PO; +PANT40TA2 PO; +POTA20TA83 PO; +RIVA10TA PO; +RIVA15TA PO
[2020-04-28 13:32] LABS: CREATININE 0.8 mg/dL (0.6-1.3); POTASSIUM 3.9 mmol/L (3.5-5.1)
== END 2020-04-28 23:59 | disposition home or self-care (01) ==
LOC: LAB 12:08
PROVIDERS: ATTEND Internal Medicine Interventional Cardiology
DX: I10 Essential (primary) hypertension (principal)
CPT/HCPCS: 36415; 80048-TC

== ENCOUNTER 2021-11-25 23:39 | Emergency (ER) | payer MEDICARE, OTHER ==
[~2021-11-25] VITALS: Ht 167.6 cm; Wt 77.1 kg
[~2021-11-25 23:39] MED LIST changes: +MECL-182 PO; -MECL-225 PO
[2021-11-26 00:02] VITALS: BP 152/76
--- NOTE | 2021-11-26 00:05 | NUR ---
TO ER BED 9. BIBSON FROM HOME C/O CHEST PAIN/ L SIDED. PT IS ALERT AND ORIENTED. RR EVEN AND NONLABORED. CONNECTED TO MONITOR. AWAITING MD FRENCH
--- NOTE | 2021-11-26 00:17 | NUR ---
EMT AT PT'S BEDSIDE FOR EKG
--- NOTE | 2021-11-26 00:18 | NUR ---
RAC #18G S/L BLOOD COLLECTED AND SENT TO LAB
--- NOTE | 2021-11-26 00:27 | NUR ---
COVID SWAB COLLECTED
[2021-11-26 00:36] LABS: BASOPHILS % (AUTO) 0.2 % (0.0-2.0); EOSINOPHILS % (AUTO) 0.1 % (0.0-6.0); HEMATOCRIT 25 % (33-45); LYMPHOCYTES # (AUTO) 0.8 K/uL (0.8-4.8); LYMPHOCYTES % (AUTO) 4.6 % (20.0-44.0); MEAN CORPUSCULAR HGB CONC 26 g/dl (31.0-36.0); MEAN CORPUSCULAR VOLUME 51 fL (82-100); MONOCYTES # (AUTO) 1.1 K/uL (0.1-1.30); MONOCYTES % (AUTO) 6.1 % (2.0-12.0); NEUTROPHILS # (AUTO) 16.5 K/uL (1.8-8.9); PLATELET COUNT (AUTO) 224 K/uL (150-450); RED BLOOD CELL COUNT(AUTO) 4.99 MIL/uL (4.0-5.2); WHITE BLOOD COUNT (AUTO) 18.5 K/uL (4.3-11.0)
[2021-11-26 00:44] LABS: HEMOGLOBIN 6.6 g/dL (11.5-14.8)
--- NOTE | 2021-11-26 00:44 | NUR ---
CRITICAL LAB: HGB 6.6. MD ECHEVARRIA NOTIFIED
[2021-11-26 00:45] LABS: CALCIUM, SERUM 8.8 mg/dL (8.5-10.1); CARBON DIOXIDE 25 mmol/L (21-32); CHLORIDE 103 mmol/L (98-107); CREATININE 0.9 mg/dL (0.6-1.3); GLUCOSE 126 mg/dL (74-106); POTASSIUM 3.2 mmol/L (3.5-5.1); SODIUM SERUM 136 mmol/L (136-145); UREA NITROGEN, BLOOD 20 mg/dL (7-18)
--- NOTE | 2021-11-26 01:43 | NUR ---
Patient does not wish to proceed with medical care recommended by Dr. Rowe. Patient given information related to possible complications, up to and including , which could occur as a result of leaving the hospital at this time. Patient verbalizes understanding of risks involved due to leaving against medical advice. Patient has signed AMA form.
[2021-11-26 02:05] LABS: BAND % (MANUAL) 6 % (0.0-5.0); BASOPHILS % (MANUAL) 0 % (0.0-2.0); EOSINOPHILS % (MANUAL) 0 % (0-4); LYMPHOCYTES % (MANUAL) 4 % (16-48); MONOCYTES % (MANUAL) 9 % (0-11.0); NEUTROPHILS % (MANUAL) 81 (42-76)
== END 2021-11-26 01:45 | disposition left against medical advice (07) ==
LOC: ER 23:43 → TRANSITION 11-26 01:07 → UNDOADMIN 11-26 01:07 → TELE1 11-26 01:26 → TRANSITION 11-26 01:26 → UNDODISIN 11-26 01:43 → ER 11-26 01:45
DX: D64.9 Anemia, unspecified (principal); I21.4 Non-ST elevation (NSTEMI) myocardial infarction; I48.91 Unspecified atrial fibrillation; I11.0 Hypertensive heart disease with heart failure; J44.9 Chronic obstructive pulmonary disease, unspecified; I50.9 Heart failure, unspecified; Z79.01 Long term (current) use of anticoagulants; Z87.442 Personal history of urinary calculi; M17.0 Bilateral primary osteoarthritis of knee; Z79.82 Long term (current) use of aspirin; Z20.822 Contact with and (suspected) exposure to COVID-19; Z79.51 Long term (current) use of inhaled steroids; Z79.899 Other long term (current) drug therapy
CPT/HCPCS: 36415; 71045-TC; 80048-TC; 83880; 84484-TC; 85025-TC; C9803; G0378

== ENCOUNTER 2022-03-08 12:23 | Outpatient (CLI) | payer MEDICARE, OTHER ==
[2022-03-08 13:09] LABS: BASOPHILS # (AUTO) 0.1 K/uL (0.0-0.2); BASOPHILS % (AUTO) 0.6 % (0.0-2.0); EOSINOPHILS % (AUTO) 2.1 % (0.0-6.0); HEMATOCRIT 36 % (33-45); HEMOGLOBIN 11.1 g/dL (11.5-14.8); LYMPHOCYTES # (AUTO) 2.6 K/uL (0.8-4.8); LYMPHOCYTES % (AUTO) 24.1 % (20.0-44.0); MEAN CORPUSCULAR HGB CONC 31 g/dl (31.0-36.0); MEAN CORPUSCULAR VOLUME 76 fL (82-100); MONOCYTES # (AUTO) 1.1 K/uL (0.1-1.30); MONOCYTES % (AUTO) 10.8 % (2.0-12.0); NEUTROPHILS # (AUTO) 6.6 K/uL (1.8-8.9); NEUTROPHILS % (AUTO) 62.4 % (43.0-81.0); PLATELET COUNT (AUTO) 381 K/uL (150-450); RED BLOOD CELL COUNT(AUTO) 4.68 MIL/uL (4.0-5.2); WHITE BLOOD COUNT (AUTO) 10.6 K/uL (4.3-11.0)
[2022-03-08 13:35] LABS: ALBUMIN 3.6 g/dL (3.4-5.0); BILIRUBIN,TOTAL 0.3 mg/dL (0.2-1.0); CALCIUM, SERUM 8.9 mg/dL (8.5-10.1); CREATININE 0.9 mg/dL (0.6-1.3); POTASSIUM 3.6 mmol/L (3.5-5.1); TOTAL PROTEIN, SERUM 7.3 g/dL (6.4-8.2)
== END 2022-03-08 23:59 | disposition home or self-care (01) ==
LOC: LAB 12:23
PROVIDERS: ATTEND Internal Medicine Interventional Cardiology
DX: I10 Essential (primary) hypertension (principal); R53.83 Other fatigue
CPT/HCPCS: 36415; 80053-TC; 85025-TC

== ENCOUNTER 2023-05-01 23:53 | Inpatient (IN) | payer MEDICARE, OTHER ==
[~2023-05-01] VITALS: Ht 167.6 cm; Wt 79.8 kg
[2023-05-02] VITALS (7 sets, daily range): BP systolic 92–126; BP diastolic 48–89; TEMP 97.5–98.4; O2SAT 96–100
[2023-05-02] MEDS ORDERED: MECLIZINE HCL 25 MG TABLET ONE (00:32)
[2023-05-02] MEDS ORDERED: DILTIAZEM HCL 50 MG IV ONE (00:33)
[2023-05-02 00:34] LABS: BASOPHILS # (AUTO) 0.1 K/uL (0.0-0.2); BASOPHILS % (AUTO) 0.5 % (0.0-2.0); EOSINOPHILS # (AUTO) 0.1 K/uL (0.0-0.7); EOSINOPHILS % (AUTO) 0.5 % (0.0-6.0); HEMATOCRIT 30 % (33-45); HEMOGLOBIN 8.6 g/dL (11.5-14.8); LYMPHOCYTES # (AUTO) 1.2 K/uL (0.8-4.8); LYMPHOCYTES % (AUTO) 8.7 % (20.0-44.0); MEAN CORPUSCULAR HEMOGLOBIN 17 PG (26.0-33.0); MEAN CORPUSCULAR HGB CONC 29 g/dl (31.0-36.0); MEAN CORPUSCULAR VOLUME 57 fL (82-100); MONOCYTES # (AUTO) 0.9 K/uL (0.1-1.30); MONOCYTES % (AUTO) 6.2 % (2.0-12.0); NEUTROPHILS # (AUTO) 11.5 K/uL (1.8-8.9); NEUTROPHILS % (AUTO) 84.1 % (43.0-81.0); PLATELET COUNT (AUTO) 215 K/uL (150-450); RED BLOOD CELL COUNT(AUTO) 5.22 MIL/uL (4.0-5.2); RED CELL DISTRIBUTION WIDTH 21.1 % (11.5-15.0); WHITE BLOOD COUNT (AUTO) 13.7 K/uL (4.3-11.0)
[2023-05-02] MEDS: MECLIZINE HCL 12.5 MG TABLET PO ONE (00:44)
[2023-05-02] MEDS: DILTIAZEM HCL 50 MG IV IV ONE (00:44)
[2023-05-02] MEDS ORDERED: ONDANSETRON HCL/PF 4 MG/2 ML VIAL ONE (00:45)
[2023-05-02 00:47] LABS: INR 1.23 (0.91-1.10); PARTIAL THROMBOPLASTIN TIME 21.6 SEC (24.3-34.3); PROTHROMBIN TIME 12.9 SECS (9.2-11.1)
[2023-05-02] MEDS: IV NS 0.9% 1,000 ML BAG IV ONE ×2 (00:49→03:58)
[2023-05-02] MEDS: ONDANSETRON HCL/PF 4 MG/2 ML VIAL IV ONE (00:49)
[2023-05-02 02:07] LABS: CALCIUM, SERUM 8.9 mg/dL (8.5-10.1); CARBON DIOXIDE 26 mmol/L (21-32); CHLORIDE 102 mmol/L (98-107); CREATININE 1.1 mg/dL (0.6-1.3); GLUCOSE 193 mg/dL (74-106); POTASSIUM 4.5 mmol/L (3.5-5.1); SODIUM SERUM 139 mmol/L (136-145); UREA NITROGEN, BLOOD 28 mg/dL (7-18)
[2023-05-02 02:15] LABS: ALANINE AMINOTRANSFERASE 42 U/L (12-78); ALBUMIN 3.2 g/dL (3.4-5.0); ALKALINE PHOSPHATASE 105 U/L (46-116); ASPARTATE AMINOTRANSFERASE 34 U/L (15-37); BILIRUBIN,DIRECT 0.3 mg/dL (0.0-0.2); BILIRUBIN,TOTAL 0.9 mg/dL (0.2-1.0); TOTAL PROTEIN, SERUM 6.4 g/dL (6.4-8.2)
[2023-05-02] MEDS ORDERED: CEFEPIME 1 GM VIAL ONE (02:33)
[2023-05-02] MEDS: CEFEPIME 1 GM in IV D5W 50 ML IV ONE (02:40)
[2023-05-02] MEDS ORDERED: AZITHROMYCIN 500 MG VIAL ONE (02:54)
[2023-05-02] MEDS ORDERED: Z GUARD REMEDY 4 OZ OINT TP PRN (03:00)
[2023-05-02] MEDS ORDERED: MAG HYDROX/AL HYDROX/SIMETH 30 ML UDC PO PRN (03:00)
[2023-05-02] MEDS ORDERED: MAGNESIUM HYDROXIDE 30 ML UDC PO PRN (03:00)
[2023-05-02] MEDS ORDERED: ONDANSETRON HCL/PF 4 MG/2 ML VIAL IVP PRN (03:00)
[2023-05-02] MEDS ORDERED: ACETAMINOPHEN 325 MG TABLET PO PRN (03:00)
[2023-05-02 03:22] LABS: LACTIC ACID 2.4 mmol/L (0.4-2.0)
[2023-05-02] MEDS: CEFTRIAXONE 1GM BAG (ER ONLY) 50 ML IV ONE (03:52)
[2023-05-02] MEDS: CEFTRIAXONE 1 G in IV D5W 50 ML IV SCH (03:58)
[2023-05-02] MEDS ORDERED: CLONIDINE HCL 0.1 MG TABLET PO PRN (07:30)
[2023-05-02 07:58] LABS: NT-PRO BNP 5767 pg/mL (0-125)
[2023-05-02] MEDS: RIVAROXABAN 15 MG TABLET PO SCH (08:12)
[2023-05-02] MEDS: PANTOPRAZOLE 40 MG TABLET.DR PO SCH (08:12)
[2023-05-02] MEDS: FLUTICASONE/VILANTEROL 1 EACH BLST.W.DEV IH SCH (08:34)
[2023-05-02] MEDS: MELOXICAM 7.5 MG TABLET PO SCH (08:34)
[2023-05-02] MEDS: DILTIAZEM HCL CD 240 MG PO SCH (08:35)
[2023-05-02] MEDS: ASPIRIN EC 81 MG TABLET.DR PO SCH (08:36)
[2023-05-02] MEDS: MECLIZINE HCL 12.5 MG TABLET PO SCH (08:37)
[2023-05-02] MEDS: CARVEDILOL 12.5 MG TABLET PO SCH (08:37)
[2023-05-02] MEDS: LOSARTAN POTASSIUM 50 MG TABLET PO SCH (09:00)
[2023-05-02] MEDS ORDERED: DIGOXIN 0.25 MG TABLET PO SCH (09:00)
[2023-05-02] MEDS: AZITHROMYCIN 500 MG in IV D5W 250 ML IV SCH (09:09)
[2023-05-02] MEDS ORDERED: FURO80TA85 PO (09:40)
[2023-05-02] MEDS ORDERED: EMPA10TA PO (09:40)
[2023-05-02] MEDS ORDERED: RIVA15TA PO (09:53)
[2023-05-02] MEDS: DIGOXIN 0.25 MG TABLET PO SCH (13:04)
[2023-05-02] MEDS: ENOXAPARIN SODIUM 80 MG/0.8 ML DISP.SYRIN SQ SCH (16:27)
[2023-05-02] MEDS ORDERED: BUDESONIDE RESPULE INH 0.5 MG/2 ML AMPUL.NEB NEB SCH (19:30)
[2023-05-03] VITALS (15 sets, daily range): BP systolic 107–148; BP diastolic 55–87; TEMP 97.5–99.3; O2SAT 97–100
[2023-05-03] MEDS: ZOLPIDEM TARTRATE 5 MG TABLET PO PRN (00:19)
[2023-05-03] MEDS: OLANZAPINE 10 MG VIAL IM ONE (04:06)
[2023-05-03] MEDS: ENOXAPARIN SODIUM 80 MG/0.8 ML DISP.SYRIN SQ SCH (05:07)
[2023-05-03] MEDS: methylPREDNISolone SOD SUCC 125 MG/2ML VIAL IV SCH ×2 (05:44→11:37)
[2023-05-03] MEDS: ALBUTEROL FS 2.5 MG/0.5 ML VIAL.NEB NEB SCH (06:02)
[2023-05-03] MEDS: IPRATROPIUM NEB FS 0.5 MG/2.5 ML AMPUL.NEB NEB SCH (06:02)
[2023-05-03 07:34] LABS: BASOPHILS # (AUTO) 0.1 K/uL (0.0-0.2); BASOPHILS % (AUTO) 0.5 % (0.0-2.0); EOSINOPHILS # (AUTO) 0.2 K/uL (0.0-0.7); EOSINOPHILS % (AUTO) 1.4 % (0.0-6.0); HEMATOCRIT 29 % (33-45); HEMOGLOBIN 8.2 g/dL (11.5-14.8); LYMPHOCYTES # (AUTO) 1.8 K/uL (0.8-4.8); LYMPHOCYTES % (AUTO) 12.7 % (20.0-44.0); MEAN CORPUSCULAR HEMOGLOBIN 17 PG (26.0-33.0); MEAN CORPUSCULAR HGB CONC 28 g/dl (31.0-36.0); MEAN CORPUSCULAR VOLUME 58 fL (82-100); MONOCYTES # (AUTO) 1.2 K/uL (0.1-1.30); MONOCYTES % (AUTO) 8.2 % (2.0-12.0); NEUTROPHILS # (AUTO) 10.9 K/uL (1.8-8.9); NEUTROPHILS % (AUTO) 77.2 % (43.0-81.0); PLATELET COUNT (AUTO) 254 K/uL (150-450); RED CELL DISTRIBUTION WIDTH 21.8 % (11.5-15.0); WHITE BLOOD COUNT (AUTO) 14.1 K/uL (4.3-11.0)
[2023-05-03 08:06] LABS: CARBOHYDRATE AG 19-9 <2 U/mL (0-35)
[2023-05-03 08:09] LABS: CHOLESTEROL 96 mg/dL (<200); HDL CHOLESTEROL 30 mg/dL (40-60); LDL 55 mg/dL (0-99); TRIGLYCERIDES 63 mg/dL (30-150)
[2023-05-03 08:21] LABS: CALCIUM, SERUM 8.9 mg/dL (8.5-10.1); CARBON DIOXIDE 24 mmol/L (21-32); CHLORIDE 103 mmol/L (98-107); CREATININE 1.1 mg/dL (0.6-1.3); GLUCOSE 134 mg/dL (74-106); MAGNESIUM 2.1 mg/dL (1.8-2.4); PHOSPHORUS 4.3 mg/dL (2.5-4.9); POTASSIUM 4.1 mmol/L (3.5-5.1); SODIUM SERUM 137 mmol/L (136-145); UREA NITROGEN, BLOOD 36 mg/dL (7-18)
[2023-05-03] MEDS: EMPAGLIFLOZIN 10 MG PO SCH (08:32)
[2023-05-03] MEDS ORDERED: RIVAROXABAN 15 MG TABLET PO SCH (09:00)
[2023-05-03 13:03] LABS: APPEARANCE,URINE TURBID (CLEAR); BILIRUBIN,URINE NEGATIVE (NEGATIVE); BLOOD, URINE NEGATIVE Ery/uL (NEGATIVE); COLOR,URINE YELLOW (YELLOW); KETONES,URINE NEGATIVE (NEGATIVE); LEUKOCYTE ESTERASE ,URINE NEGATIVE (NEGATIVE); NITRITE, URINE NEGATIVE (NEGATIVE); PROTEIN,URINE 1+ mg/dl (NEGATIVE); UGLUCOSE NEGATIVE (NEGATIVE); UROBILINOGEN,URINE 0.2 EU/dL (0.2)
[2023-05-03 13:32] LABS: ADD URINE CULTURE NO; BACTERIA,URINE None seen /HPF (None Seen); MUCUS,URINE Rare /LPF (None Seen); RBC,URINE NONE SEEN /HPF (0-2); SQUAMOUS EPITHELIAL CELL,UR None Seen /HPF (None Seen); WBC,URINE NONE SEEN /HPF (0-3)
[2023-05-03 13:36] LABS: URINE AMORPHOUS URATE Many /HPF (None Seen)
[2023-05-04] VITALS (13 sets, daily range): BP systolic 119–133; BP diastolic 62–87; TEMP 97.3–97.9; O2SAT 96–100
[2023-05-04 07:54] LABS: BASOPHILS % (AUTO) 0.1 % (0.0-2.0); HEMATOCRIT 28 % (33-45); LYMPHOCYTES # (AUTO) 0.7 K/uL (0.8-4.8); LYMPHOCYTES % (AUTO) 6.4 % (20.0-44.0); MEAN CORPUSCULAR HEMOGLOBIN 16 PG (26.0-33.0); MEAN CORPUSCULAR HGB CONC 28 g/dl (31.0-36.0); MEAN CORPUSCULAR VOLUME 58 fL (82-100); MONOCYTES # (AUTO) 0.7 K/uL (0.1-1.30); MONOCYTES % (AUTO) 6.6 % (2.0-12.0); NEUTROPHILS # (AUTO) 9.1 K/uL (1.8-8.9); NEUTROPHILS % (AUTO) 86.9 % (43.0-81.0); PLATELET COUNT (AUTO) 252 K/uL (150-450); RED BLOOD CELL COUNT(AUTO) 4.88 MIL/uL (4.0-5.2); RED CELL DISTRIBUTION WIDTH 21.5 % (11.5-15.0); WHITE BLOOD COUNT (AUTO) 10.5 K/uL (4.3-11.0)
[2023-05-04 08:09] LABS: CALCIUM, SERUM 8.1 mg/dL (8.5-10.1); CREATININE 1.2 mg/dL (0.6-1.3); MAGNESIUM 2.2 mg/dL (1.8-2.4); PHOSPHORUS 4.6 mg/dL (2.5-4.9); POTASSIUM 3.9 mmol/L (3.5-5.1)
[2023-05-04] MEDS: FUROSEMIDE 100 MG/10 ML VIAL IV SCH (08:29)
[2023-05-04] MEDS: RIVAROXABAN 15 MG TABLET PO SCH (16:17)
[2023-05-05] VITALS (13 sets, daily range): BP systolic 128–148; BP diastolic 62–82; TEMP 97.3–98.1; O2SAT 96–100
[2023-05-05 06:42] LABS: HEMATOCRIT 31 % (33-45); HEMOGLOBIN 8.6 g/dL (11.5-14.8); LYMPHOCYTES # (AUTO) 0.8 K/uL (0.8-4.8); LYMPHOCYTES % (AUTO) 4.8 % (20.0-44.0); MEAN CORPUSCULAR HEMOGLOBIN 16 PG (26.0-33.0); MEAN CORPUSCULAR HGB CONC 28 g/dl (31.0-36.0); MEAN CORPUSCULAR VOLUME 57 fL (82-100); MONOCYTES # (AUTO) 0.8 K/uL (0.1-1.30); NEUTROPHILS # (AUTO) 14.2 K/uL (1.8-8.9); NEUTROPHILS % (AUTO) 90.2 % (43.0-81.0); PLATELET COUNT (AUTO) 304 K/uL (150-450); RED BLOOD CELL COUNT(AUTO) 5.37 MIL/uL (4.0-5.2); RED CELL DISTRIBUTION WIDTH 21.1 % (11.5-15.0); WHITE BLOOD COUNT (AUTO) 15.8 K/uL (4.3-11.0)
[2023-05-05 07:11] LABS: ALANINE AMINOTRANSFERASE 37 U/L (12-78); ALBUMIN 2.9 g/dL (3.4-5.0); ALKALINE PHOSPHATASE 90 U/L (46-116); ASPARTATE AMINOTRANSFERASE 22 U/L (15-37); BILIRUBIN,TOTAL 0.7 mg/dL (0.2-1.0); CALCIUM, SERUM 8.8 mg/dL (8.5-10.1); CARBON DIOXIDE 29 mmol/L (21-32); CHLORIDE 103 mmol/L (98-107); CREATININE 1.1 mg/dL (0.6-1.3); GLUCOSE 145 mg/dL (74-106); MAGNESIUM 2.3 mg/dL (1.8-2.4); PHOSPHORUS 4.7 mg/dL (2.5-4.9); POTASSIUM 3.1 mmol/L (3.5-5.1); SODIUM SERUM 144 mmol/L (136-145); TOTAL PROTEIN, SERUM 6.2 g/dL (6.4-8.2); UREA NITROGEN, BLOOD 39 mg/dL (7-18)
[2023-05-05] MEDS: POTASSIUM CHLORIDE 20 MEQ TAB.PRT.SR PO SCH (08:39)
[2023-05-05] MEDS: FUROSEMIDE 100 MG/10 ML VIAL IV SCH (08:40)
[2023-05-06] VITALS (10 sets, daily range): BP systolic 138–144; BP diastolic 78–90; TEMP 98.2–98.8; O2SAT 97–100
[2023-05-06 06:26] LABS: EOSINOPHILS # (AUTO) 0.2 K/uL (0.0-0.7); EOSINOPHILS % (AUTO) 0.9 % (0.0-6.0); HEMATOCRIT 33 % (33-45); HEMOGLOBIN 9.1 g/dL (11.5-14.8); LYMPHOCYTES # (AUTO) 1.2 K/uL (0.8-4.8); LYMPHOCYTES % (AUTO) 5.5 % (20.0-44.0); MEAN CORPUSCULAR HEMOGLOBIN 16 PG (26.0-33.0); MEAN CORPUSCULAR HGB CONC 28 g/dl (31.0-36.0); MEAN CORPUSCULAR VOLUME 57 fL (82-100); MONOCYTES # (AUTO) 1.9 K/uL (0.1-1.30); MONOCYTES % (AUTO) 8.5 % (2.0-12.0); NEUTROPHILS % (AUTO) 85.1 % (43.0-81.0); PLATELET COUNT (AUTO) 334 K/uL (150-450); RED BLOOD CELL COUNT(AUTO) 5.67 MIL/uL (4.0-5.2); RED CELL DISTRIBUTION WIDTH 21.1 % (11.5-15.0); WHITE BLOOD COUNT (AUTO) 22.3 K/uL (4.3-11.0)
[2023-05-06 06:50] LABS: ALANINE AMINOTRANSFERASE 35 U/L (12-78); ALBUMIN 2.9 g/dL (3.4-5.0); ALKALINE PHOSPHATASE 98 U/L (46-116); ASPARTATE AMINOTRANSFERASE 26 U/L (15-37); BILIRUBIN,TOTAL 0.6 mg/dL (0.2-1.0); CALCIUM, SERUM 8.9 mg/dL (8.5-10.1); CARBON DIOXIDE 33 mmol/L (21-32); CHLORIDE 103 mmol/L (98-107); CREATININE 0.9 mg/dL (0.6-1.3); GLUCOSE 121 mg/dL (74-106); PHOSPHORUS 2.9 mg/dL (2.5-4.9); POTASSIUM 3.2 mmol/L (3.5-5.1); SODIUM SERUM 142 mmol/L (136-145); TOTAL PROTEIN, SERUM 5.9 g/dL (6.4-8.2); UREA NITROGEN, BLOOD 39 mg/dL (7-18)
[2023-05-06] MEDS: POTASSIUM CHLORIDE 20 MEQ TAB.PRT.SR PO ONE (08:29)
[2023-05-06] MEDS ORDERED: POTASSIUM CHLORIDE 20 MEQ TAB.PRT.SR PO SCH (09:00)
[2023-05-06] MEDS: FUROSEMIDE 40 MG TABLET PO SCH (09:22)
[2023-05-06] MEDS: AMIODARONE HCL 200 MG TABLET PO SCH (14:13)
[2023-05-07] MEDS ORDERED: POTASSIUM CHLORIDE 20 MEQ TAB.PRT.SR PO SCH (09:00)
== END 2023-05-06 16:00 | DRG 280 ==
LOC: ER 05-02 00:08 → TELE 05-02 02:39
PROVIDERS: ADMIT Student in an Organized Health Care Education/Training Program; ATTEND Internal Medicine
DX: I11.0 Hypertensive heart disease with heart failure (principal); I50.23 Acute on chronic systolic (congestive) heart failure; I21.A1 Myocardial infarction type 2; J96.01 Acute respiratory failure with hypoxia; J44.0 Chronic obstructive pulmonary disease with (acute) lower respiratory infection; E87.20 Acidosis, unspecified; D62 Acute posthemorrhagic anemia; R65.10 Systemic inflammatory response syndrome (SIRS) of non-infectious origin without acute organ dysfunction; I42.9 Cardiomyopathy, unspecified; I48.0 Paroxysmal atrial fibrillation; Z20.822 Contact with and (suspected) exposure to COVID-19; N20.0 Calculus of kidney; Z86.79 Personal history of other diseases of the circulatory system; M17.0 Bilateral primary osteoarthritis of knee; Z79.01 Long term (current) use of anticoagulants; Z79.51 Long term (current) use of inhaled steroids; Z79.82 Long term (current) use of aspirin; Z79.899 Other long term (current) drug therapy; E78.5 Hyperlipidemia, unspecified; Z86.711 Personal history of pulmonary embolism; Z68.32 Body mass index [BMI] 32.0-32.9, adult; E66.9 Obesity, unspecified; C26.9 Malignant neoplasm of ill-defined sites within the digestive system; Z87.891 Personal history of nicotine dependence; I25.10 Atherosclerotic heart disease of native coronary artery without angina pectoris; D50.9 Iron deficiency anemia, unspecified; Z86.718 Personal history of other venous thrombosis and embolism; Z87.442 Personal history of urinary calculi; R60.9 Edema, unspecified; S81.802A Unspecified open wound, left lower leg, initial encounter; X58.XXXA Exposure to other specified factors, initial encounter; Y92.9 Unspecified place or not applicable
CPT/HCPCS: 36415; 70450-TC; 71045-TC; 71250-TC; 80048-TC; 80053-TC; 80061-TC; 80076-TC; 80162-TC; 81001; 82378; 83605-TC; 83735-TC; 83880; 84100-TC; 84484-TC; 85025-TC; 85730-TC; 86301; 87040-TC; 93307-TC; 94760-TC; 94799-TC; 97110-TC; 97116-TC; 97530-TC; 97535-TC; A4223; G0378; J0456; J0692; J0696; J1650; J1940; J2405; J2930; J3490; J7030; J7060; J8597

== ENCOUNTER 2023-11-26 15:42 | Inpatient (IN) | payer MEDICARE, OTHER ==
[~2023-11-26] VITALS: Ht 170.2 cm; Wt 75.3 kg
[~2023-11-26 15:42] MED LIST changes: -ASPI-1420 PO; -CARV25TA2 PO; -CLON0.2T PO; -CLON0.5T4 PO; -Digoxin PO; +EMPA10TA PO; +FURO80TA85 PO; -LOSA50TA3 PO; -LOSA50TA39 PO; -MECL-182 PO; -MELO-107 PO; -RIVA10TA PO
[2023-11-26 16:28] LABS: BASOPHILS # (AUTO) 0.1 K/uL (0.0-0.2); BASOPHILS % (AUTO) 0.2 % (0.0-2.0); EOSINOPHILS % (AUTO) 0.1 % (0.0-6.0); HEMATOCRIT 26 % (33-45); HEMOGLOBIN 7.6 g/dL (11.5-14.8); LYMPHOCYTES # (AUTO) 1.2 K/uL (0.8-4.8); LYMPHOCYTES % (AUTO) 4.7 % (20.0-44.0); MEAN CORPUSCULAR HEMOGLOBIN 19 PG (26.0-33.0); MEAN CORPUSCULAR HGB CONC 30 g/dl (31.0-36.0); MEAN CORPUSCULAR VOLUME 63 fL (82-100); MONOCYTES # (AUTO) 2.4 K/uL (0.1-1.30); NEUTROPHILS # (AUTO) 22.5 K/uL (1.8-8.9); PLATELET COUNT (AUTO) 490 K/uL (150-450); RED BLOOD CELL COUNT(AUTO) 4.05 MIL/uL (4.0-5.2); RED CELL DISTRIBUTION WIDTH 19.8 % (11.5-15.0); WHITE BLOOD COUNT (AUTO) 26.2 K/uL (4.3-11.0)
[2023-11-26 16:42] LABS: ALANINE AMINOTRANSFERASE 33 U/L (12-78); ALBUMIN 2.7 g/dL (3.4-5.0); ALKALINE PHOSPHATASE 581 U/L (46-116); ASPARTATE AMINOTRANSFERASE 130 U/L (15-37); BILIRUBIN,DIRECT 0.4 mg/dL (0.0-0.2); BILIRUBIN,TOTAL 0.7 mg/dL (0.2-1.0); CALCIUM, SERUM 8.6 mg/dL (8.5-10.1); CARBON DIOXIDE 28 mmol/L (21-32); CHLORIDE 97 mmol/L (98-107); CREATININE 0.9 mg/dL (0.6-1.3); GLUCOSE 99 mg/dL (74-106); POTASSIUM 3.7 mmol/L (3.5-5.1); SODIUM SERUM 134 mmol/L (136-145); TOTAL PROTEIN, SERUM 6.6 g/dL (6.4-8.2); UREA NITROGEN, BLOOD 22 mg/dL (7-18)
[2023-11-26 16:43] LABS: INR 1.38 (0.91-1.10); PARTIAL THROMBOPLASTIN TIME 26.5 SEC (24.3-34.3)
[2023-11-26 17:12] LABS: APPEARANCE,URINE Clear (CLEAR); BILIRUBIN,URINE SMALL (NEGATIVE); BLOOD, URINE Negative Ery/uL (NEGATIVE); COLOR,URINE DARK YELLOW (YELLOW); KETONES,URINE Negative (NEGATIVE); LEUKOCYTE ESTERASE ,URINE Negative (NEGATIVE); NITRITE, URINE Negative (NEGATIVE); PH,URINE 5.5 (5.0-8.0); PROTEIN,URINE 30 mg/dl (NEGATIVE); UGLUCOSE Negative (NEGATIVE)
[2023-11-26 17:18] LABS: LYMPHOCYTES % (MANUAL) 4 % (16-48); MONOCYTES % (MANUAL) 5 % (0-11.0); NEUTROPHILS % (MANUAL) 91 (42-76)
[2023-11-26 17:19] LABS: ANISOCYTOSIS 2+; HYPOCHROMASIA 1+; PLATELET ESTIMATE ADEQUATE
[2023-11-26 17:44] LABS: ADD URINE CULTURE NO; BACTERIA,URINE Few /HPF (None Seen); RBC,URINE 0-2 /HPF (0-2); SQUAMOUS EPITHELIAL CELL,UR Few /HPF (None Seen); URINE AMORPHOUS URATE Few /HPF (None Seen); WBC,URINE 0-2 /HPF (0-3)
[2023-11-26 17:45] LABS: THYROID STIMULATING HORMONE 1.44 uIU/mL (0.358-3.74)
[2023-11-26] MEDS ORDERED: LEVOFLOXACIN 750 MG /D5W 150ML PIGGYBACK IV ONE (18:30)
[2023-11-26 18:41] LABS: LACTIC ACID 4.2 mmol/L (0.4-2.0)
[2023-11-26] MEDS ORDERED: MAG HYDROX/AL HYDROX/SIMETH 30 ML UDC PO PRN (19:00)
[2023-11-26] MEDS ORDERED: Z GUARD REMEDY 4 OZ OINT TP PRN (19:00)
[2023-11-26] MEDS ORDERED: LEVOFLOXACIN 500 MG /D5W 100ML 500 MG in PREMIX 1 EA IV SCH (19:00)
[2023-11-26] MEDS ORDERED: ONDANSETRON HCL/PF 4 MG/2 ML VIAL IVP PRN (19:00)
[2023-11-26] MEDS: LEVOFLOXACIN 750 MG /D5W 150ML 750 MG in PREMIX 1 EA IV ONE (19:02)
[2023-11-26] MEDS ORDERED: FUROSEMIDE 40 MG/4 ML VIAL ONE (19:04)
[2023-11-26] MEDS: FUROSEMIDE 40 MG/4 ML VIAL IV ONE (19:11)
[2023-11-26 20:00] VITALS: BP 119/76; TEMP 98.6
[2023-11-26] MEDS: POTASSIUM CHLORIDE 20 MEQ TAB.PRT.SR PO SCH (20:59)
[2023-11-26] MEDS: ENOXAPARIN SODIUM 40 MG/0.4 ML DISP.SYRIN SQ SCH (21:28)
[2023-11-26] MEDS ORDERED: DILTIAZEM HCL 25 MG IV ONE (21:42)
[2023-11-26] MEDS: DILTIAZEM HCL 50 MG IV IV STA (21:47)
[2023-11-26] MEDS ORDERED: MAGNESIUM HYDROXIDE 30 ML UDC PO PRN (22:00)
[2023-11-26] MEDS ORDERED: ZOLPIDEM TARTRATE 5 MG TABLET PO PRN (22:00)
[2023-11-26] MEDS ORDERED: POTASSIUM CHLORIDE 20 MEQ TAB.PRT.SR PO ONE (22:54)
[2023-11-26] MEDS: FUROSEMIDE 40 MG/4 ML VIAL IV SCH (23:03)
[2023-11-27] VITALS: BP 125/56; TEMP 98.9; O2SAT 100
[2023-11-27 04:00] VITALS: BP 120/75; TEMP 98.2; O2SAT 100
[2023-11-27 06:50] LABS: BASOPHILS % (AUTO) 0.1 % (0.0-2.0); EOSINOPHILS % (AUTO) 0.1 % (0.0-6.0); HEMATOCRIT 26 % (33-45); HEMOGLOBIN 7.6 g/dL (11.5-14.8); LYMPHOCYTES # (AUTO) 1.9 K/uL (0.8-4.8); LYMPHOCYTES % (AUTO) 6.7 % (20.0-44.0); MEAN CORPUSCULAR HEMOGLOBIN 19 PG (26.0-33.0); MEAN CORPUSCULAR HGB CONC 30 g/dl (31.0-36.0); MEAN CORPUSCULAR VOLUME 64 fL (82-100); MONOCYTES # (AUTO) 2.3 K/uL (0.1-1.30); MONOCYTES % (AUTO) 8.1 % (2.0-12.0); PLATELET COUNT (AUTO) 409 K/uL (150-450); RED BLOOD CELL COUNT(AUTO) 4.02 MIL/uL (4.0-5.2); RED CELL DISTRIBUTION WIDTH 19.8 % (11.5-15.0); WHITE BLOOD COUNT (AUTO) 28.3 K/uL (4.3-11.0)
[2023-11-27 07:26] LABS: ALANINE AMINOTRANSFERASE 25 U/L (12-78); ALBUMIN 2.2 g/dL (3.4-5.0); ALKALINE PHOSPHATASE 510 U/L (46-116); ASPARTATE AMINOTRANSFERASE 101 U/L (15-37); BILIRUBIN,TOTAL 0.9 mg/dL (0.2-1.0); CALCIUM, SERUM 8.3 mg/dL (8.5-10.1); CARBON DIOXIDE 28 mmol/L (21-32); CHLORIDE 100 mmol/L (98-107); CREATININE 0.8 mg/dL (0.6-1.3); GLUCOSE 92 mg/dL (74-106); MAGNESIUM 1.6 mg/dL (1.8-2.4); PHOSPHORUS 2.9 mg/dL (2.5-4.9); POTASSIUM 3.3 mmol/L (3.5-5.1); SODIUM SERUM 139 mmol/L (136-145); UREA NITROGEN, BLOOD 20 mg/dL (7-18)
[2023-11-27] MEDS ORDERED: PANTOPRAZOLE 40 MG TABLET.DR PO SCH (07:30)
[2023-11-27 08:00] VITALS: BP 131/74; TEMP 98.1; O2SAT 100
[2023-11-27] MEDS: PANTOPRAZOLE 40 MG TABLET.DR PO SCH (08:27)
[2023-11-27] MEDS: Magnesium 1GM/D5W 100ML PREMIX 100 ML IV SCH (09:33)
[2023-11-27] MEDS: DILTIAZEM HCL CD 240 MG PO SCH (09:34)
[2023-11-27] MEDS: DIGOXIN 0.25 MG TABLET PO SCH (09:34)
[2023-11-27] MEDS: POTASSIUM CHLORIDE 20 MEQ TAB.PRT.SR PO SCH (09:36)
[2023-11-27] MEDS: RIVAROXABAN 15 MG TABLET PO SCH (09:36)
[2023-11-27] MEDS: EMPAGLIFLOZIN 10 MG TABLET PO SCH (09:37)
[2023-11-27 09:51] LABS: THYROID STIMULATING HORMONE 0.98 uIU/mL (0.358-3.74)
[2023-11-27 09:54] LABS: LYMPHOCYTES % (MANUAL) 13 % (16-48); MONOCYTES % (MANUAL) 6 % (0-11.0); NEUTROPHILS % (MANUAL) 81 (42-76)
[2023-11-27 09:56] LABS: ANISOCYTOSIS 1+; HYPOCHROMASIA 1+; OVALOCYTES 1+; PLATELET ESTIMATE ADEQUATE; TARGET CELLS 1+
[2023-11-27 12:00] VITALS: BP 116/56; TEMP 98.1; O2SAT 100
[2023-11-27] MEDS: SOD FERRIC GLUC 125 MG in IV NS 0.9% 100 ML IV SCH (15:19)
[2023-11-27 16:00] VITALS: BP 113/58; TEMP 97.7; O2SAT 100
[2023-11-27] MEDS: AZITHROMYCIN 250 MG TABLET PO ONE (16:34)
[2023-11-27] MEDS: VANCOMYCIN 1.5 GM in IV D5W 500 ML IV ONE (17:34)
[2023-11-27] MEDS: CEFEPIME 2 GM in IV D5W 100 ML IV SCH (17:34)
[2023-11-27 20:00] VITALS: BP 120/59; TEMP 98.2; O2SAT 100
[2023-11-27] MEDS ORDERED: LEVOFLOXACIN 500 MG /D5W 100ML 500 MG in PREMIX 1 EA IV SCH (20:00)
[2023-11-28] VITALS (10 sets, daily range): BP systolic 115–135; BP diastolic 58–81; TEMP 97.7–99; O2SAT 95–100
[2023-11-28] MEDS: VANCOMYCIN 750 MG in IV D5W 250 ML IV SCH (05:12)
[2023-11-28 07:04] LABS: BASOPHILS # (AUTO) 0.1 K/uL (0.0-0.2); BASOPHILS % (AUTO) 0.2 % (0.0-2.0); EOSINOPHILS # (AUTO) 0.2 K/uL (0.0-0.7); EOSINOPHILS % (AUTO) 0.6 % (0.0-6.0); HEMATOCRIT 22 % (33-45); LYMPHOCYTES # (AUTO) 1.4 K/uL (0.8-4.8); LYMPHOCYTES % (AUTO) 4.6 % (20.0-44.0); MEAN CORPUSCULAR HEMOGLOBIN 19 PG (26.0-33.0); MEAN CORPUSCULAR HGB CONC 30 g/dl (31.0-36.0); MEAN CORPUSCULAR VOLUME 63 fL (82-100); MONOCYTES % (AUTO) 6.7 % (2.0-12.0); NEUTROPHILS # (AUTO) 26.2 K/uL (1.8-8.9); NEUTROPHILS % (AUTO) 87.9 % (43.0-81.0); PLATELET COUNT (AUTO) 407 K/uL (150-450); RED BLOOD CELL COUNT(AUTO) 3.58 MIL/uL (4.0-5.2); RED CELL DISTRIBUTION WIDTH 19.2 % (11.5-15.0); WHITE BLOOD COUNT (AUTO) 29.8 K/uL (4.3-11.0)
[2023-11-28 07:46] LABS: HEMOGLOBIN 6.7 g/dL (11.5-14.8)
[2023-11-28 08:08] LABS: ALANINE AMINOTRANSFERASE 23 U/L (12-78); ALKALINE PHOSPHATASE 439 U/L (46-116); ASPARTATE AMINOTRANSFERASE 122 U/L (15-37); BILIRUBIN,TOTAL 0.6 mg/dL (0.2-1.0); CALCIUM, SERUM 8.2 mg/dL (8.5-10.1); CHLORIDE 99 mmol/L (98-107); CREATININE 0.9 mg/dL (0.6-1.3); GLUCOSE 123 mg/dL (74-106); MAGNESIUM 2.1 mg/dL (1.8-2.4); POTASSIUM 3.6 mmol/L (3.5-5.1); SODIUM SERUM 137 mmol/L (136-145); TOTAL PROTEIN, SERUM 5.6 g/dL (6.4-8.2); UREA NITROGEN, BLOOD 30 mg/dL (7-18)
[2023-11-28 09:08] LABS: CARBON DIOXIDE 23 mmol/L (21-32)
[2023-11-28 16:39] LABS: HYPOCHROMASIA 1+; LYMPHOCYTES % (MANUAL) 7 % (16-48); MONOCYTES % (MANUAL) 5 % (0-11.0); NEUTROPHILS % (MANUAL) 88 (42-76); PLATELET ESTIMATE ADEQUATE
[2023-11-28 16:40] LABS: ANISOCYTOSIS 1+; TARGET CELLS 1+
[2023-11-28 16:41] LABS: OVALOCYTES 1+
[2023-11-28 18:32] LABS: HEMOGLOBIN 6.9 g/dL (11.5-14.8)
[2023-11-28] MEDS: FUROSEMIDE 20 MG/2 ML VIAL IV ONE (22:26)
[2023-11-29] VITALS (9 sets, daily range): BP systolic 103–129; BP diastolic 55–69; TEMP 97.3–98.4; O2SAT 97–100
[2023-11-29 00:32] LABS: HEMOGLOBIN 7.4 g/dL (11.5-14.8)
[2023-11-29] MEDS: ALBUTEROL FS 2.5 MG/3 ML VIAL.NEB NEB PRN (02:01)
[2023-11-29 04:09] LABS: EOSINOPHILS % (AUTO) 0.1 % (0.0-6.0); HEMATOCRIT 24 % (33-45); HEMOGLOBIN 7.3 g/dL (11.5-14.8); LYMPHOCYTES # (AUTO) 1.1 K/uL (0.8-4.8); LYMPHOCYTES % (AUTO) 3.6 % (20.0-44.0); MEAN CORPUSCULAR HEMOGLOBIN 19 PG (26.0-33.0); MEAN CORPUSCULAR HGB CONC 30 g/dl (31.0-36.0); MEAN CORPUSCULAR VOLUME 63 fL (82-100); MONOCYTES # (AUTO) 1.9 K/uL (0.1-1.30); MONOCYTES % (AUTO) 6.4 % (2.0-12.0); NEUTROPHILS % (AUTO) 89.9 % (43.0-81.0); PLATELET COUNT (AUTO) 378 K/uL (150-450); RED BLOOD CELL COUNT(AUTO) 3.87 MIL/uL (4.0-5.2); RED CELL DISTRIBUTION WIDTH 20.5 % (11.5-15.0)
[2023-11-29 04:16] LABS: WHITE BLOOD COUNT (AUTO) 30.1 K/uL (4.3-11.0)
[2023-11-29 04:24] LABS: CALCIUM, SERUM 8.4 mg/dL (8.5-10.1); CARBON DIOXIDE 25 mmol/L (21-32); CHLORIDE 96 mmol/L (98-107); GLUCOSE 92 mg/dL (74-106); POTASSIUM 3.6 mmol/L (3.5-5.1); SODIUM SERUM 134 mmol/L (136-145); UREA NITROGEN, BLOOD 30 mg/dL (7-18)
[2023-11-29 09:09] LABS: ANISOCYTOSIS 2+; LYMPHOCYTES % (MANUAL) 6 % (16-48); MONOCYTES % (MANUAL) 5 % (0-11.0); NEUTROPHILS % (MANUAL) 89 (42-76); PLATELET ESTIMATE ADEQUATE
[2023-11-29 09:10] LABS: HYPOCHROMASIA 2+; OVALOCYTES 1+; TARGET CELLS 1+
[2023-11-29] MEDS: SPIRONOLACTONE 25 MG TABLET PO SCH (09:47)
[2023-11-29] MEDS: ACETAMINOPHEN 325 MG TABLET PO PRN (10:57)
[2023-11-30 04:00] VITALS: BP 127/55; TEMP 97.4; O2SAT 97
[2023-11-30 06:46] LABS: EOSINOPHILS # (AUTO) 0.1 K/uL (0.0-0.7); EOSINOPHILS % (AUTO) 0.5 % (0.0-6.0); HEMATOCRIT 24 % (33-45); HEMOGLOBIN 7.2 g/dL (11.5-14.8); LYMPHOCYTES # (AUTO) 1.1 K/uL (0.8-4.8); MEAN CORPUSCULAR HEMOGLOBIN 19 PG (26.0-33.0); MEAN CORPUSCULAR HGB CONC 30 g/dl (31.0-36.0); MEAN CORPUSCULAR VOLUME 65 fL (82-100); MONOCYTES # (AUTO) 1.7 K/uL (0.1-1.30); MONOCYTES % (AUTO) 6.1 % (2.0-12.0); NEUTROPHILS % (AUTO) 89.4 % (43.0-81.0); PLATELET COUNT (AUTO) 366 K/uL (150-450); RED BLOOD CELL COUNT(AUTO) 3.77 MIL/uL (4.0-5.2); RED CELL DISTRIBUTION WIDTH 20.7 % (11.5-15.0)
[2023-11-30 07:31] LABS: CALCIUM, SERUM 8.4 mg/dL (8.5-10.1); CARBON DIOXIDE 24 mmol/L (21-32); CHLORIDE 96 mmol/L (98-107); CREATININE 1.1 mg/dL (0.6-1.3); GLUCOSE 135 mg/dL (74-106); POTASSIUM 3.6 mmol/L (3.5-5.1); SODIUM SERUM 132 mmol/L (136-145); UREA NITROGEN, BLOOD 31 mg/dL (7-18)
[2023-11-30 08:00] VITALS: BP 137/62; TEMP 97.5; O2SAT 97
[2023-11-30 09:31] LABS: EOSINOPHILS % (MANUAL) 1 % (0-4); LYMPHOCYTES % (MANUAL) 7 % (16-48); MONOCYTES % (MANUAL) 11 % (0-11.0); NEUTROPHILS % (MANUAL) 81 (42-76); PLATELET ESTIMATE ADEQUATE
[2023-11-30 09:33] LABS: ANISOCYTOSIS 1+; HYPOCHROMASIA 1+; OVALOCYTES 1+; TARGET CELLS 1+
[2023-11-30 12:12] VITALS: BP 129/60; TEMP 97.3; O2SAT 98
== END 2023-11-30 13:31 | DRG 291 ==
LOC: ER 15:48 → TELE1 18:35 → MEDSG1 11-29 14:01
PROC: 30233N1 Transfusion of Nonautologous Red Blood Cells into Peripheral Vein, Percutaneous Approach (ICD-10-PCS; principal; 2023-11-28)
DX: I13.0 Hypertensive heart and chronic kidney disease with heart failure and stage 1 through stage 4 chronic kidney disease, or unspecified chronic kidney disease (principal); I50.23 Acute on chronic systolic (congestive) heart failure; I48.20 Chronic atrial fibrillation, unspecified; E87.1 Hypo-osmolality and hyponatremia; E87.20 Acidosis, unspecified; N17.9 Acute kidney failure, unspecified; I42.9 Cardiomyopathy, unspecified; E78.5 Hyperlipidemia, unspecified; M17.0 Bilateral primary osteoarthritis of knee; Z79.01 Long term (current) use of anticoagulants; Z79.84 Long term (current) use of oral hypoglycemic drugs; Z79.51 Long term (current) use of inhaled steroids; Z79.899 Other long term (current) drug therapy; Z90.49 Acquired absence of other specified parts of digestive tract; Z87.891 Personal history of nicotine dependence; D50.9 Iron deficiency anemia, unspecified; E86.1 Hypovolemia; N20.0 Calculus of kidney; Z91.81 History of falling; Z86.711 Personal history of pulmonary embolism; Z86.718 Personal history of other venous thrombosis and embolism; Z87.442 Personal history of urinary calculi; N18.9 Chronic kidney disease, unspecified; D72.829 Elevated white blood cell count, unspecified
CPT/HCPCS: 36415; 71045-TC; 71250-TC; 80048-TC; 80053-TC; 80061-TC; 80076-TC; 80202-TC; 81001; 82728-TC; 82962-TC; 83540-TC; 83605-TC; 83735-TC; 83880; 84100-TC; 84439-TC; 84443-TC; 84484-TC; 85025-TC; 85027-TC; 85730-TC; 86140-TC; 86850-TC; 87040-TC; 93970-TC; 94799-TC; 97110-TC; 97112-TC; 97530-TC; A4216; A4223; G0378; J0692; J1650; J1940; J1956; J2916; J3371; J3475; J3490; J7030; J7050; J7060; P9016

== ENCOUNTER 2023-12-22 16:27 | Inpatient (IN) | payer MEDICARE, OTHER ==
[~2023-12-22] VITALS: Ht 167.6 cm; Wt 78.0 kg
[~2023-12-22 16:27] MED LIST changes: -FLUT1BLS IH; -FURO80TA85 PO
[2023-12-22] MEDS: CEFEPIME 1 GM in IV D5W 50 ML IV ONE (17:00)
[2023-12-22 17:29] LABS: BASOPHILS % (AUTO) 0.1 % (0.0-2.0); EOSINOPHILS # (AUTO) 0.1 K/uL (0.0-0.7); EOSINOPHILS % (AUTO) 0.2 % (0.0-6.0); HEMATOCRIT 34 % (33-45); HEMOGLOBIN 9.7 g/dL (11.5-14.8); LYMPHOCYTES # (AUTO) 2.9 K/uL (0.8-4.8); LYMPHOCYTES % (AUTO) 10.4 % (20.0-44.0); MEAN CORPUSCULAR HEMOGLOBIN 20 PG (26.0-33.0); MEAN CORPUSCULAR HGB CONC 29 g/dl (31.0-36.0); MEAN CORPUSCULAR VOLUME 68 fL (82-100); MONOCYTES # (AUTO) 0.8 K/uL (0.1-1.30); NEUTROPHILS # (AUTO) 24.2 K/uL (1.8-8.9); NEUTROPHILS % (AUTO) 86.3 % (43.0-81.0); PLATELET COUNT (AUTO) 205 K/uL (150-450); RED BLOOD CELL COUNT(AUTO) 4.91 MIL/uL (4.0-5.2); RED CELL DISTRIBUTION WIDTH 27.1 % (11.5-15.0)
[2023-12-22] MEDS: VANCOMYCIN 1 GM in IV D5W 250 ML IV ONE (17:37)
[2023-12-22 17:44] LABS: INR 1.38 (0.91-1.10); PARTIAL THROMBOPLASTIN TIME 28.6 SEC (24.3-34.3); PROTHROMBIN TIME 14.3 SECS (9.2-11.1)
[2023-12-22 17:49] LABS: LACTIC ACID 3.3 mmol/L (0.4-2.0)
[2023-12-22 17:50] LABS: CALCIUM, SERUM 8.4 mg/dL (8.5-10.1); CARBON DIOXIDE 25 mmol/L (21-32); CHLORIDE 99 mmol/L (98-107); CREATININE 1.3 mg/dL (0.6-1.3); GLUCOSE 93 mg/dL (74-106); POTASSIUM 4.4 mmol/L (3.5-5.1); SODIUM SERUM 137 mmol/L (136-145); UREA NITROGEN, BLOOD 57 mg/dL (7-18)
[2023-12-22 17:56] LABS: ALANINE AMINOTRANSFERASE 38 U/L (12-78); ALBUMIN 2.1 g/dL (3.4-5.0); ASPARTATE AMINOTRANSFERASE 184 U/L (15-37); BILIRUBIN,DIRECT 2.7 mg/dL (0.0-0.2); BILIRUBIN,TOTAL 3.2 mg/dL (0.2-1.0); TOTAL PROTEIN, SERUM 5.9 g/dL (6.4-8.2)
[2023-12-22] MEDS ORDERED: ALBU2.5V38 NEB (17:58)
[2023-12-22] MEDS ORDERED: ACET-73 PO (17:58)
[2023-12-22] MEDS ORDERED: FLUT1BLS14 IH (17:58)
[2023-12-22] MEDS ORDERED: SPIR25TA PO (17:58)
[2023-12-22] MEDS ORDERED: ACET325T53 PO (17:58)
[2023-12-22] MEDS ORDERED: OMEP20CA15 PO (17:58)
[2023-12-22 18:19] LABS: BAND % (MANUAL) 2 % (0.0-5.0); LYMPHOCYTES % (MANUAL) 2 % (16-48); MONOCYTES % (MANUAL) 1 % (0-11.0); NEUTROPHILS % (MANUAL) 95 (42-76)
[2023-12-22 18:21] LABS: PLATELET ESTIMATE ADEQUATE
[2023-12-22 18:22] LABS: ALKALINE PHOSPHATASE 1582 U/L (46-116); ANISOCYTOSIS 1+; HYPOCHROMASIA 1+; OVALOCYTES 1+; STOMATOCYTES 1+; TARGET CELLS 1+
[2023-12-22] MEDS: IV NS 0.9% 500 ML BAG IV ONE ×2 (18:30→19:30)
[2023-12-22 18:40] LABS: APPEARANCE,URINE Cloudy (CLEAR); BILIRUBIN,URINE SMALL (NEGATIVE); BLOOD, URINE Moderate Ery/uL (NEGATIVE); COLOR,URINE DARK YELLOW (YELLOW); KETONES,URINE Negative (NEGATIVE); LEUKOCYTE ESTERASE ,URINE Negative (NEGATIVE); NITRITE, URINE Negative (NEGATIVE); PH,URINE 5.5 (5.0-8.0); PROTEIN,URINE 30 mg/dl (NEGATIVE); UGLUCOSE Negative (NEGATIVE)
[2023-12-22 19:21] LABS: ADD URINE CULTURE YES; BACTERIA,URINE 1+ /HPF (None Seen)
[2023-12-22 19:22] LABS: CALCIUM OXALATE CRYSTALS,UR Few /HPF (None Seen); HYALINE CASTS, URINE Moderate /LPF (None Seen)
[2023-12-22] MEDS: ACETAMINOPHEN 650 MG/SUPP.RECT RC ONE (19:30)
[2023-12-22] MEDS ORDERED: ACETAMINOPHEN 650 MG/SUPP.RECT RC ONE (19:43)
[2023-12-22] MEDS ORDERED: DIGOXIN INJ 0.5 MG/2 ML AMPUL ONE (19:56)
[2023-12-22] MEDS: DIGOXIN INJ 0.5 MG/2 ML AMPUL IV ONE (20:00)
[2023-12-22] MEDS ORDERED: IPRATROPIUM NEB FS 0.5 MG/2.5 ML AMPUL.NEB NEB PRN (21:00)
[2023-12-22] MEDS ORDERED: CEFEPIME 1 GM VIAL IM SCH (21:00)
[2023-12-22] MEDS ORDERED: Z GUARD REMEDY 4 OZ OINT TP PRN (21:00)
[2023-12-22] MEDS ORDERED: ALBUTEROL FS 2.5 MG/3 ML VIAL.NEB NEB PRN (21:00)
[2023-12-22] MEDS ORDERED: ENOXAPARIN SODIUM 40 MG/0.4 ML DISP.SYRIN SQ SCH (21:00)
[2023-12-22] MEDS ORDERED: ONDANSETRON HCL/PF 4 MG/2 ML VIAL IVP PRN (21:00)
[2023-12-22] MEDS ORDERED: ACETAMINOPHEN 325 MG TABLET PO PRN (21:00)
[2023-12-22] MEDS ORDERED: ACETAMINOPHEN 650 MG/SUPP.RECT RC PRN (21:00)
[2023-12-22] MEDS ORDERED: ACETAMINOPHEN ES 500 MG TABLET PO PRN (21:00)
[2023-12-22] MEDS: CEFEPIME 2 GM in IV D5W 100 ML IV SCH (21:49)
[2023-12-22] MEDS: AMIODARONE 150 MG in IV D5W 100 ML IV ONE (22:08)
[2023-12-22] MEDS: AMIODARONE 450 MG in IV D5W 241 ML IV PRN (22:16)
[2023-12-22] MEDS: VANCOMYCIN 500 MG in IV D5W 100 ML IV ONE (22:29)
[2023-12-22] MEDS: ACETAMINOPHEN 325 MG TABLET PO PRN (23:05)
[2023-12-23] VITALS (12 sets, daily range): BP systolic 99–141; BP diastolic 49–90; TEMP 97.4–97.8; O2SAT 96–100
[2023-12-23] MEDS: BUDESONIDE RESPULE INH 0.5 MG/2 ML AMPUL.NEB IH SCH (07:34)
[2023-12-23] MEDS: ALBUTEROL FS 2.5 MG/3 ML VIAL.NEB IH SCH ×2 (07:34→14:41)
[2023-12-23 07:35] LABS: CALCIUM, SERUM 8.1 mg/dL (8.5-10.1); CARBON DIOXIDE 17 mmol/L (21-32); CHLORIDE 97 mmol/L (98-107); CREATININE 1.9 mg/dL (0.6-1.3); GLUCOSE 111 mg/dL (74-106); MAGNESIUM 2.5 mg/dL (1.8-2.4); PHOSPHORUS 6.5 mg/dL (2.5-4.9); POTASSIUM 5.3 mmol/L (3.5-5.1); SODIUM SERUM 135 mmol/L (136-145); UREA NITROGEN, BLOOD 64 mg/dL (7-18)
[2023-12-23 07:56] LABS: DIGOXIN 2.56 ng/mL (0.90-2.00)
[2023-12-23 08:14] LABS: CHOLESTEROL 97 mg/dL (<200); HDL CHOLESTEROL 15 mg/dL (40-60); LDL 56 mg/dL (0-99); TRIGLYCERIDES 174 mg/dL (30-150)
[2023-12-23] MEDS: PANTOPRAZOLE 40 MG VIAL IV SCH (08:31)
[2023-12-23] MEDS: EMPAGLIFLOZIN 10 MG TABLET PO SCH (08:31)
[2023-12-23] MEDS: FUROSEMIDE 40 MG/4 ML VIAL IV SCH ×2 (08:32→16:15)
[2023-12-23] MEDS: CEFEPIME 1 GM in IV D5W 50 ML IV SCH (08:32)
[2023-12-23] MEDS: SPIRONOLACTONE 25 MG TABLET PO SCH (08:32)
[2023-12-23] MEDS: DIGOXIN 0.25 MG TABLET PO SCH (08:33)
[2023-12-23] MEDS: DILTIAZEM HCL CD 240 MG PO SCH (08:33)
[2023-12-23] MEDS ORDERED: FLUTICASONE/SALMETEROL 1 DISK IH SCH (09:00)
[2023-12-23] MEDS: IPRATROPIUM NEB FS 0.5 MG/2.5 ML AMPUL.NEB NEB SCH (10:00)
[2023-12-23 10:16] LABS: HEMATOCRIT 34 % (33-45); HEMOGLOBIN 9.4 g/dL (11.5-14.8); LYMPHOCYTES # (AUTO) 0.9 K/uL (0.8-4.8); MEAN CORPUSCULAR HEMOGLOBIN 20 PG (26.0-33.0); MEAN CORPUSCULAR HGB CONC 28 g/dl (31.0-36.0); MEAN CORPUSCULAR VOLUME 71 fL (82-100); MONOCYTES # (AUTO) 0.8 K/uL (0.1-1.30); MONOCYTES % (AUTO) 1.7 % (2.0-12.0); NEUTROPHILS # (AUTO) 44.6 K/uL (1.8-8.9); NEUTROPHILS % (AUTO) 96.3 % (43.0-81.0); PLATELET COUNT (AUTO) 153 K/uL (150-450); RED BLOOD CELL COUNT(AUTO) 4.74 MIL/uL (4.0-5.2); RED CELL DISTRIBUTION WIDTH 26.2 % (11.5-15.0)
[2023-12-23 10:21] LABS: WHITE BLOOD COUNT (AUTO) 46.4 K/uL (4.3-11.0)
[2023-12-23 10:21] LABS: ABG BASE EXCESS -9.5 mmol/L (-2.0-3.0); ABG OXYGEN SATURATION 98.5 % (94.0-98.0); ABG PCO2 24.4 mmHg (32.0-45.0); ABG PH 7.383 (7.350-7.450); ABG PO2 132.3 mmHg (83.0-108.0); ABG TOTAL HEMOGLOBIN 9.6 G/dL (12.0-16.0); COHb 0.6 % (0.5-1.5); MetHb 0.5 % (0.0-1.5); O2Hb 97.4 % (94.0-97.0); SITE, ABG RIGHT BRACHIAL
[2023-12-23 10:37] LABS: BASOPHILS % (MANUAL) 0 % (0.0-2.0); EOSINOPHILS % (MANUAL) 0 % (0-4); HYPOCHROMASIA 2+; LYMPHOCYTES % (MANUAL) 4 % (16-48); MONOCYTES % (MANUAL) 2 % (0-11.0); NEUTROPHILS % (MANUAL) 94 (42-76); PLATELET ESTIMATE ADEQUATE
[2023-12-23 10:38] LABS: ANISOCYTOSIS 2+
[2023-12-23 11:30] LABS: IRON, SERUM 11 ug/dl (50-175); TOTAL IRON BINDING CAPACITY 172 ug/dl (250-450)
[2023-12-23] MEDS: SODIUM ZIRCONIUM CYCLOSILICATE 10 GM POWD.PACK PO SCH (12:58)
[2023-12-23 13:18] LABS: CALCIUM, SERUM 7.9 mg/dL (8.5-10.1); CARBON DIOXIDE 16 mmol/L (21-32); CHLORIDE 98 mmol/L (98-107); CREATININE 1.9 mg/dL (0.6-1.3); GLUCOSE 125 mg/dL (74-106); POTASSIUM 6.1 mmol/L (3.5-5.1); SODIUM SERUM 136 mmol/L (136-145); UREA NITROGEN, BLOOD 68 mg/dL (7-18)
[2023-12-23 14:28] LABS: LACTIC ACID 8.5 mmol/L (0.4-2.0)
[2023-12-23] MEDS: NYSTATIN TOP POWDER 15 GM BOTTLE TP SCH (16:17)
[2023-12-23] MEDS: RIVAROXABAN 15 MG TABLET PO SCH (17:12)
[2023-12-23 18:52] LABS: APPEARANCE,URINE TURBID (CLEAR); BILIRUBIN,URINE 1+ (NEGATIVE); BLOOD, URINE 3+ Ery/uL (NEGATIVE); COLOR,URINE DARK YELLOW (YELLOW); KETONES,URINE NEGATIVE (NEGATIVE); LEUKOCYTE ESTERASE ,URINE TRACE (NEGATIVE); NITRITE, URINE NEGATIVE (NEGATIVE); PH,URINE 5.5 (5.0-8.0); PROTEIN,URINE 2+ mg/dl (NEGATIVE); UGLUCOSE NEGATIVE (NEGATIVE)
[2023-12-23 19:09] LABS: CREATININE, URINE 48.3 MG/DL (30.0-125.0); URINE TOTAL PROTEIN 150.5 mg/dL (0-11.9)
[2023-12-23 19:13] LABS: ADD URINE CULTURE NO; BACTERIA,URINE 1+ /HPF (None Seen); SQUAMOUS EPITHELIAL CELL,UR 0-2 /HPF (None Seen); URINE AMORPHOUS URATE Moderate /HPF (None Seen)
[2023-12-23 19:14] LABS: COARSE GRANULAR CASTS,URINE Rare /LPF (None Seen)
[2023-12-23 19:26] LABS: EOSINOPHIL,URINE None Seen
[2023-12-23] MEDS ORDERED: VANCOMYCIN 1 GM in IV D5W 250 ML IV SCH (21:00)
[2023-12-23 21:37] LABS: LACTIC ACID 5.4 mmol/L (0.4-2.0)
[2023-12-23] MEDS: VANCOMYCIN 750 MG in IV D5W 250 ML IV SCH (21:38)
[2023-12-24] VITALS (18 sets, daily range): BP systolic 105–127; BP diastolic 49–68; TEMP 97.5–98.2; O2SAT 95–100
[2023-12-24 06:27] LABS: BASOPHILS % (AUTO) 0.1 % (0.0-2.0); EOSINOPHILS # (AUTO) 0.1 K/uL (0.0-0.7); EOSINOPHILS % (AUTO) 0.2 % (0.0-6.0); HEMATOCRIT 30 % (33-45); HEMOGLOBIN 8.8 g/dL (11.5-14.8); LYMPHOCYTES # (AUTO) 1.1 K/uL (0.8-4.8); LYMPHOCYTES % (AUTO) 3.3 % (20.0-44.0); MEAN CORPUSCULAR HEMOGLOBIN 20 PG (26.0-33.0); MEAN CORPUSCULAR HGB CONC 29 g/dl (31.0-36.0); MEAN CORPUSCULAR VOLUME 69 fL (82-100); MONOCYTES # (AUTO) 1.4 K/uL (0.1-1.30); MONOCYTES % (AUTO) 4.5 % (2.0-12.0); NEUTROPHILS # (AUTO) 29.7 K/uL (1.8-8.9); NEUTROPHILS % (AUTO) 91.9 % (43.0-81.0); PLATELET COUNT (AUTO) 154 K/uL (150-450); RED BLOOD CELL COUNT(AUTO) 4.37 MIL/uL (4.0-5.2); RED CELL DISTRIBUTION WIDTH 26.6 % (11.5-15.0)
[2023-12-24 06:58] LABS: ALANINE AMINOTRANSFERASE 125 U/L (12-78); ALBUMIN 1.9 g/dL (3.4-5.0); ASPARTATE AMINOTRANSFERASE > 1000 U/L (15-37); BILIRUBIN,TOTAL 3.7 mg/dL (0.2-1.0); CARBON DIOXIDE 22 mmol/L (21-32); CHLORIDE 99 mmol/L (98-107); CREATININE 2.2 mg/dL (0.6-1.3); GLUCOSE 82 mg/dL (74-106); MAGNESIUM 2.5 mg/dL (1.8-2.4); POTASSIUM 5.7 mmol/L (3.5-5.1); SODIUM SERUM 137 mmol/L (136-145); TOTAL PROTEIN, SERUM 5.5 g/dL (6.4-8.2); UREA NITROGEN, BLOOD 75 mg/dL (7-18)
[2023-12-24 07:14] LABS: ALKALINE PHOSPHATASE 1235 U/L (46-116); PHOSPHORUS 8.1 mg/dL (2.5-4.9)
[2023-12-24 07:43] LABS: CREATINE KINASE, TOTAL 789 U/L (26-192)
[2023-12-24 08:02] LABS: WHITE BLOOD COUNT (AUTO) 32.3 K/uL (4.3-11.0)
[2023-12-24 08:56] LABS: ANISOCYTOSIS 2+; BASOPHILS % (MANUAL) 0 % (0.0-2.0); EOSINOPHILS % (MANUAL) 0 % (0-4); HYPOCHROMASIA 1+; LYMPHOCYTES % (MANUAL) 4 % (16-48); MONOCYTES % (MANUAL) 5 % (0-11.0); NEUTROPHILS % (MANUAL) 91 (42-76); PLATELET ESTIMATE ADEQUATE
[2023-12-24 08:57] LABS: OVALOCYTES 1+; TARGET CELLS 1+
[2023-12-24] MEDS: PANTOPRAZOLE 40 MG TABLET.DR PO SCH (09:00)
[2023-12-24] MEDS: SODIUM ZIRCONIUM CYCLOSILICATE 10 GM POWD.PACK PO SCH (10:52)
[2023-12-24] MEDS: MUPIROCIN OINT 2% 22 GM TUBE NS SCH (17:16)
[2023-12-24 18:12] LABS: CARBON DIOXIDE 17 mmol/L (21-32); CHLORIDE 100 mmol/L (98-107); CREATININE 2.5 mg/dL (0.6-1.3); GLUCOSE 100 mg/dL (74-106); POTASSIUM 5.8 mmol/L (3.5-5.1); SODIUM SERUM 136 mmol/L (136-145)
[2023-12-24 18:16] LABS: UREA NITROGEN, BLOOD 84 mg/dL (7-18)
[2023-12-25] VITALS (14 sets, daily range): BP systolic 111–140; BP diastolic 54–72; TEMP 97.7–98.1; O2SAT 97–100
[2023-12-25 06:07] LABS: PTH, INTACT 210 pg/mL (15-65)
[2023-12-25 06:32] LABS: BASOPHILS # (AUTO) 0.1 K/uL (0.0-0.2); BASOPHILS % (AUTO) 0.4 % (0.0-2.0); HEMATOCRIT 29 % (33-45); HEMOGLOBIN 8.5 g/dL (11.5-14.8); MEAN CORPUSCULAR HEMOGLOBIN 20 PG (26.0-33.0); MEAN CORPUSCULAR HGB CONC 29 g/dl (31.0-36.0); MEAN CORPUSCULAR VOLUME 69 fL (82-100); MONOCYTES # (AUTO) 1.2 K/uL (0.1-1.30); MONOCYTES % (AUTO) 3.7 % (2.0-12.0); NEUTROPHILS # (AUTO) 29.9 K/uL (1.8-8.9); NEUTROPHILS % (AUTO) 92.9 % (43.0-81.0); PLATELET COUNT (AUTO) 139 K/uL (150-450); RED BLOOD CELL COUNT(AUTO) 4.27 MIL/uL (4.0-5.2); RED CELL DISTRIBUTION WIDTH 26.3 % (11.5-15.0)
[2023-12-25 07:15] LABS: ALANINE AMINOTRANSFERASE 117 U/L (12-78); ALBUMIN 1.8 g/dL (3.4-5.0); ASPARTATE AMINOTRANSFERASE 713 U/L (15-37); BILIRUBIN,TOTAL 3.6 mg/dL (0.2-1.0); CALCIUM, SERUM 6.6 mg/dL (8.5-10.1); CARBON DIOXIDE 17 mmol/L (21-32); CHLORIDE 100 mmol/L (98-107); CREATININE 2.7 mg/dL (0.6-1.3); GLUCOSE 88 mg/dL (74-106); POTASSIUM 5.4 mmol/L (3.5-5.1); SODIUM SERUM 136 mmol/L (136-145); TOTAL PROTEIN, SERUM 5.3 g/dL (6.4-8.2)
[2023-12-25 08:05] LABS: WHITE BLOOD COUNT (AUTO) 32.2 K/uL (4.3-11.0)
[2023-12-25 08:22] LABS: ALKALINE PHOSPHATASE 1023 U/L (46-116)
[2023-12-25 08:23] LABS: UREA NITROGEN, BLOOD 87 mg/dL (7-18)
[2023-12-25 08:58] LABS: ANISOCYTOSIS 2+; BASOPHILS % (MANUAL) 0 % (0.0-2.0); EOSINOPHILS % (MANUAL) 0 % (0-4); HYPOCHROMASIA 1+; LYMPHOCYTES % (MANUAL) 3 % (16-48); MONOCYTES % (MANUAL) 2 % (0-11.0); NEUTROPHILS % (MANUAL) 95 (42-76); OVALOCYTES 1+; PLATELET ESTIMATE DECREASED; TARGET CELLS 1+
[2023-12-25] MEDS: SODIUM ZIRCONIUM CYCLOSILICATE 10 GM POWD.PACK PO SCH (09:30)
[2023-12-25] MEDS ORDERED: CEFE1PIG3 IV (09:46)
[2023-12-25] MEDS: ALBUMIN 25% 25 GM in PREMIX 1 EA IV SCH (10:32)
[2023-12-25 11:10] LABS: *SPE A/G RATIO 0.6 (0.7-1.7); *SPE ALPHA-1-GLOBULIN 0.5 g/dL (0.0-0.4); *SPE ALPHA-2-GLOBULIN 0.8 g/dL (0.4-1.0); *SPE BETA GLOBULIN 0.7 g/dL (0.7-1.3); *SPE GLOBULIN, TOTAL 3.2 g/dL (2.2-3.9); *SPE M-SPIKE Not Observed g/dL (Not Observed); *SPE PROTEIN TOTAL 5.2 g/dL (6.0-8.5); *SPEGAMMA GLOBULIN 1.1 g/dL (0.4-1.8)
== END 2023-12-25 17:06 | disposition hospice, inpatient (51) | DRG 177 ==
LOC: ER 16:31 → TELE1 17:49 → TELE-TD 12-23 00:50 → TELE1 12-23 09:44 → UNDODISIN 12-25 12:09
PROVIDERS: ADMIT Nurse Practitioner Acute Care
DX: J15.69 Pneumonia due to other Gram-negative bacteria (principal); I50.23 Acute on chronic systolic (congestive) heart failure; I13.0 Hypertensive heart and chronic kidney disease with heart failure and stage 1 through stage 4 chronic kidney disease, or unspecified chronic kidney disease; D68.59 Other primary thrombophilia; N39.0 Urinary tract infection, site not specified; C77.9 Secondary and unspecified malignant neoplasm of lymph node, unspecified; I48.20 Chronic atrial fibrillation, unspecified; E87.1 Hypo-osmolality and hyponatremia; E87.20 Acidosis, unspecified; L97.919 Non-pressure chronic ulcer of unspecified part of right lower leg with unspecified severity; L97.929 Non-pressure chronic ulcer of unspecified part of left lower leg with unspecified severity; Z86.711 Personal history of pulmonary embolism; K21.9 Gastro-esophageal reflux disease without esophagitis; Z86.718 Personal history of other venous thrombosis and embolism; Z90.49 Acquired absence of other specified parts of digestive tract; N18.9 Chronic kidney disease, unspecified; M17.0 Bilateral primary osteoarthritis of knee; F29 Unspecified psychosis not due to a substance or known physiological condition; Z79.51 Long term (current) use of inhaled steroids; Z79.01 Long term (current) use of anticoagulants; Z79.899 Other long term (current) drug therapy; Z79.84 Long term (current) use of oral hypoglycemic drugs; Z87.891 Personal history of nicotine dependence; B96.89 Other specified bacterial agents as the cause of diseases classified elsewhere; D50.9 Iron deficiency anemia, unspecified; Z74.09 Other reduced mobility; M89.8X9 Other specified disorders of bone, unspecified site; I25.10 Atherosclerotic heart disease of native coronary artery without angina pectoris; J45.909 Unspecified asthma, uncomplicated; E11.22 Type 2 diabetes mellitus with diabetic chronic kidney disease; E11.51 Type 2 diabetes mellitus with diabetic peripheral angiopathy without gangrene; E78.5 Hyperlipidemia, unspecified; E87.5 Hyperkalemia; I87.8 Other specified disorders of veins; R60.9 Edema, unspecified; S81.802A Unspecified open wound, left lower leg, initial encounter; S81.801A Unspecified open wound, right lower leg, initial encounter; X58.XXXA Exposure to other specified factors, initial encounter; Y92.9 Unspecified place or not applicable; L89.156 Pressure-induced deep tissue damage of sacral region; L89.896 Pressure-induced deep tissue damage of other site; E83.41 Hypermagnesemia; Y95 Nosocomial condition; Z85.038 Personal history of other malignant neoplasm of large intestine; Z85.05 Personal history of malignant neoplasm of liver; Z87.442 Personal history of urinary calculi
CPT/HCPCS: 36415; 36600; 71045-TC; 76770-TC; 80048-TC; 80053-TC; 80061-TC; 80076-TC; 80162-TC; 80202-TC; 81001; 82140-TC; 82550-TC; 82553; 82570-TC; 82803-TC; 83540-TC; 83605-TC; 83735-TC; 83880; 83970; 84100-TC; 84155; 84165; 84300-TC; 84443-TC; 84484-TC; 85025-TC; 85730-TC; 87040-TC; 87081-TC; 87086-TC; 92526; 92611-TC; 93307-TC; 94760-TC; 94762-TC; 94799-TC; A4216; A6403; G0378; J0282; J0692; J1160; J1940; J2470; J3370; J3371; J7060; P9047